=== PATIENT | male | born 1935 | race African-American/Black ===

== ENCOUNTER 2017-10-09 17:51 | Inpatient (IN) ==
[2017-10-09 18:16] LABS: Basophils % 0.3 % (0.0-0.8); Eosinophils % 0.2 % (0.00-10.9); Hematocrit 32.8 VOL% (42.0-52.0); Hemoglobin 10.7 GM/DL (14.0-18.0); Immature Granulocytes % 0.4 %; Immature Granulocytes Absolute 0.04 #; Lymphocytes # 0.8 10*3/uL (1.4-4.0); Lymphocytes % 6.9 % (21.2-54.2); Mean Corpuscular HGB Conc 32.6 GM/DL (32-36); Mean Corpuscular Hemoglobin 24 PG (27-34); Mean Corpuscular Volume 73.7 FL (87-102); Mean Platelet Volume 9.6 FL (9.6-12.0); Monocytes # 0.7 10*3/uL (0.11-0.8); Monocytes % 6.6 % (1.7-12.7); Neutrophils # 9.3 10*3/uL (1.4-7.4); Neutrophils % 85.6 % (38.7-73.9); Platelet Count 235 T/CUMM (130-400); Red Blood Count 4.45 MC/CUMM (3.8-5.5); Red Cell Distribution Width 15.5 % (9.3-17.3); White Blood Count 10.8 T/CUMM (4-12)
[2017-10-09 18:39] LABS: Lactic Acid 4.2 MMOL/L (0.4-2.0)
[2017-10-09 18:52] LABS: Alanine Aminotransferase 21 U/L (16-61); Albumin 3.4 G/DL (3.4-5.0); Alkaline Phosphatase 62 U/L (45-117); Aspartate Amino Transferase 13 U/L (0-37); Blood Urea Nitrogen 43 MG/DL (7-18); Calcium 10.6 MG/DL (8.5-10.1); Glucose 322 MG/DL (74-106); Osmolality,Calculated 303.3 MOS/KG (273-304); Potassium 4.3 MMOL/L (3.5-5.1); Sodium 141 MMOL/L (136-145); Total Protein 7.6 G/DL (6.4-8.3); Troponin I Only < 0.015 NG/ML (0.00-0.045)
[2017-10-09 19:14] LABS: Apearance,Urine CLOUDY (Clear); Bacteria,Urine Many /HPF (Few); Bilirubin,Urine Negative (Negative); Blood, Urine Negative (Negative); Glucose,Urine (UA) 150 mg/dL (Negative); Ketones,Urine Negative (Negative); Nitrite,Urine Negative (Negative); Protein,Urine 100 MG/DL; Urine Color Yellow (Yellow); Urine Specific Gravity 1.013 (1.001-1.035); Urine Urobilinogen < 2.0 EU/DL (0.2-1.0); WBC,Urine 684 /HPF (0-6)
[2017-10-09] MEDS ORDERED: VANCOMYCIN INJ 1,000 MG in SODIUM CHLORIDE 0.9% 250 ML IV STA (20:58)
[2017-10-09] MEDS ORDERED: cefTRIAXone 250 MG VIAL IV STA (20:58)
[2017-10-09] MEDS ORDERED: SODIUM CHLORIDE 0.9% 500 ML IV STA (21:01)
[2017-10-09] MEDS ORDERED: cefTRIAXone 1,000 MG VIAL ONE (21:24)
[2017-10-09] MEDS ORDERED: VANCOMYCIN 1,000 MG VIAL ONE (21:24)
[2017-10-09] MEDS ORDERED: PIPERACILLIN/TAZOBACTAM 3,375 MG in SODIUM CHLORIDE 0.9% 100 ML IV STA (21:30)
[2017-10-09] MEDS ORDERED: ALBUTEROL/IPRATROPIUM 3 ML NEB RESP TX PRN (22:11)
[2017-10-09] MEDS ORDERED: ACETAMINOPHEN 325 MG TABLET PEG PRN (22:22)
[2017-10-09] MEDS ORDERED: ONDANSETRON 4 MG/2 ML VIAL IV PRN (22:22)
[2017-10-09] MEDS ORDERED: SODIUM CHLORIDE 0.9% 1,000 ML IV SCH (22:30)
[2017-10-09] MEDS ORDERED: GLUCAGON 1 MG VIAL IM PRN (22:51)
[2017-10-09] MEDS ORDERED: PIPERACILLIN/TAZOBACTAM 3,375 MG VIAL IV ONE (22:52)
[2017-10-09] MEDS ORDERED: SODIUM CHLORIDE 0.9% 100 ML IV ONE (22:52)
[2017-10-09] MEDS ORDERED: FUROSEMIDE 40 MG/4 ML VIAL IV PRN (22:55)
[2017-10-09] MEDS ORDERED: CARVEDILOL 12.5 MG TABLET PEG SCH (23:30)
[2017-10-10] MEDS ORDERED: VANCOMYCIN INJ 1,250 MG in SODIUM CHLORIDE 0.45% 250 ML IV SCH ×2 (00:30→09:30)
[2017-10-10] MEDS: INSULIN LISPRO 100 UNIT/ML SUBCUT SCH ×4 (00:52→17:31)
[2017-10-10] MEDS ORDERED: BRIMONIDINE/TIMOLOL OPH SOLN 5 ML BOTTLE LEFT EYE SCH (01:00)
[2017-10-10] MEDS ORDERED: MOISTURIZING CREAM (EUCERIN) 113 GM JAR TOP SCH (01:00)
[2017-10-10] MEDS ORDERED: BIMATOPROST 0.01% OPH SOLN 2.5 ML BOTTLE LEFT EYE SCH (01:00)
[2017-10-10] MEDS: ALBUTEROL/IPRATROPIUM 3 ML NEB RESP TX SCH ×5 (01:15→23:36)
[2017-10-10 02:04] LABS: Basophils % 0.2 % (0.0-0.8); Eosinophils % 0.3 % (0.00-10.9); Hematocrit 33.1 VOL% (42.0-52.0); Hemoglobin 10.8 GM/DL (14.0-18.0); Immature Granulocytes % 0.5 %; Immature Granulocytes Absolute 0.05 #; Lymphocytes # 0.8 10*3/uL (1.4-4.0); Lymphocytes % 8.4 % (21.2-54.2); Mean Corpuscular HGB Conc 32.6 GM/DL (32-36); Mean Corpuscular Hemoglobin 24 PG (27-34); Mean Corpuscular Volume 73.7 FL (87-102); Mean Platelet Volume 10.9 FL (9.6-12.0); Monocytes # 0.9 10*3/uL (0.11-0.8); Monocytes % 9.6 % (1.7-12.7); Neutrophils # 7.7 10*3/uL (1.4-7.4); Platelet Count 219 T/CUMM (130-400); Red Blood Count 4.49 MC/CUMM (3.8-5.5); Red Cell Distribution Width 15.8 % (9.3-17.3); White Blood Count 9.6 T/CUMM (4-12)
[2017-10-10 02:43] LABS: Alanine Aminotransferase 21 U/L (16-61); Albumin 3.3 G/DL (3.4-5.0); Alkaline Phosphatase 67 U/L (45-117); Aspartate Amino Transferase 14 U/L (0-37); Bilirubin,Total < 0.39 MG/DL (0.2-1.0); Blood Urea Nitrogen 42 MG/DL (7-18); Calcium 9.9 MG/DL (8.5-10.1); Glucose 243 MG/DL (74-106); Magnesium 2.3 MG/DL (1.8-2.4); Osmolality,Calculated 304.8 MOS/KG (273-304); Potassium 4.3 MMOL/L (3.5-5.1); Sodium 144 MMOL/L (136-145); Total Protein 7.5 G/DL (6.4-8.3)
[2017-10-10 04:25] LABS: Anisocytosis 1+; Hypochromasia 1+; Ovalocytes Few
[2017-10-10 04:26] LABS: Platelet Estimate Normal
[2017-10-10] MEDS: PIPERACILLIN/TAZOBACTAM 3,375 MG in SODIUM CHLORIDE 0.9% 100 ML IV SCH ×4 (06:12→22:34)
[2017-10-10] MEDS ORDERED: FERROUS SULFATE 325 MG TABLET PO SCH (09:00)
[2017-10-10] MEDS ORDERED: FUROSEMIDE 40 MG TABLET PEG SCH (09:00)
[2017-10-10] MEDS ORDERED: amLODIPine 10 MG TABLET PEG SCH (09:00)
[2017-10-10] MEDS: ENOXAPARIN 30 MG/0.3 ML SYRINGE SUBCUT SCH (09:12)
[2017-10-10] MEDS: LISINOPRIL 5 MG TABLET PEG SCH (09:12)
[2017-10-10] MEDS: CARVEDILOL 12.5 MG TABLET PEG SCH ×2 (09:12→16:03)
[2017-10-10] MEDS: MOISTURIZING CREAM (EUCERIN) 113 GM JAR TOP SCH ×2 (09:20→22:06)
[2017-10-10] MEDS ORDERED: FUROSEMIDE 40 MG/4 ML VIAL IV SCH ×2 (12:30→16:00)
[2017-10-10] MEDS: FUROSEMIDE 40 MG/4 ML VIAL IV SCH (12:55)
[2017-10-10 14:24] LABS: Apearance,Urine CLEAR (Clear); Bilirubin,Urine Negative (Negative); Blood, Urine Small mg/dL (Negative); Glucose,Urine (UA) Negative (Negative); Ketones,Urine Negative (Negative); Nitrite,Urine Negative (Negative); Protein,Urine Negative; RBC,Urine 4 /HPF (0-4); Urine Color Straw (Yellow); Urine Specific Gravity 1.008 (1.001-1.035); Urine Urobilinogen < 2.0 EU/DL (0.2-1.0); WBC,Urine 10 /HPF (0-6)
[2017-10-10] MEDS: POTASSIUM IODIDE ORAL SOLN 1,000 MG/ML BOTTLE PO SCH ×2 (16:03→20:49)
[2017-10-10] MEDS: PANTOPRAZOLE 40 MG TABLET PO SCH (16:03)
[2017-10-10] MEDS: LOVASTATIN 20 MG TABLET PEG SCH (16:03)
[2017-10-10] MEDS: BRIMONIDINE/TIMOLOL OPH SOLN 5 ML BOTTLE LEFT EYE SCH (20:49)
[2017-10-10] MEDS: BIMATOPROST 0.01% OPH SOLN 2.5 ML BOTTLE LEFT EYE SCH (20:49)
[2017-10-11] MEDS: INSULIN LISPRO 100 UNIT/ML SUBCUT SCH ×4 (00:01→17:46)
[2017-10-11] MEDS: ALBUTEROL/IPRATROPIUM 3 ML NEB RESP TX SCH ×6 (03:46→23:16)
[2017-10-11 05:12] LABS: Basophils % 0.2 % (0.0-0.8); Eosinophils # 0.1 10*3/uL (0.0-0.87); Eosinophils % 1.2 % (0.00-10.9); Hematocrit 34.7 VOL% (42.0-52.0); Hemoglobin 11.4 GM/DL (14.0-18.0); Immature Granulocytes % 0.6 %; Immature Granulocytes Absolute 0.05 #; Lymphocytes # 0.8 10*3/uL (1.4-4.0); Lymphocytes % 10.1 % (21.2-54.2); Mean Corpuscular HGB Conc 32.9 GM/DL (32-36); Mean Corpuscular Hemoglobin 24 PG (27-34); Mean Platelet Volume 10.5 FL (9.6-12.0); Monocytes # 0.7 10*3/uL (0.11-0.8); Monocytes % 9.1 % (1.7-12.7); NRBC # 0.02 10*3/uL; Neutrophils # 6.4 10*3/uL (1.4-7.4); Neutrophils % 78.8 % (38.7-73.9); Platelet Count 184 T/CUMM (130-400); Red Blood Count 4.69 MC/CUMM (3.8-5.5); Red Cell Distribution Width 15.9 % (9.3-17.3); White Blood Count 8.1 T/CUMM (4-12)
[2017-10-11 05:16] LABS: Calcium 10.1 MG/DL (8.5-10.1); Magnesium 2.2 MG/DL (1.8-2.4); Osmolality,Calculated 300.6 MOS/KG (273-304); Potassium 4.1 MMOL/L (3.5-5.1)
[2017-10-11] MEDS: PIPERACILLIN/TAZOBACTAM 3,375 MG in SODIUM CHLORIDE 0.9% 100 ML IV SCH ×2 (06:10→17:44)
[2017-10-11] MEDS: CARVEDILOL 12.5 MG TABLET PEG SCH ×2 (08:00→17:45)
[2017-10-11] MEDS: ENOXAPARIN 30 MG/0.3 ML SYRINGE SUBCUT SCH (08:01)
[2017-10-11] MEDS: FUROSEMIDE 40 MG/4 ML VIAL IV SCH ×2 (08:01→17:46)
[2017-10-11] MEDS: LISINOPRIL 5 MG TABLET PEG SCH (08:01)
[2017-10-11] MEDS: MOISTURIZING CREAM (EUCERIN) 113 GM JAR TOP SCH ×2 (08:02→22:24)
[2017-10-11] MEDS: POTASSIUM IODIDE ORAL SOLN 1,000 MG/ML BOTTLE PO SCH ×3 (08:04→22:23)
[2017-10-11] MEDS: PANTOPRAZOLE 40 MG TABLET PO SCH (17:44)
[2017-10-11] MEDS: LOVASTATIN 20 MG TABLET PEG SCH (17:44)
[2017-10-11] MEDS: BRIMONIDINE/TIMOLOL OPH SOLN 5 ML BOTTLE LEFT EYE SCH (22:24)
[2017-10-11] MEDS: BIMATOPROST 0.01% OPH SOLN 2.5 ML BOTTLE LEFT EYE SCH (22:24)
[2017-10-12] MEDS: INSULIN LISPRO 100 UNIT/ML SUBCUT SCH ×4 (00:12→18:15)
[2017-10-12] MEDS: ALBUTEROL/IPRATROPIUM 3 ML NEB RESP TX SCH ×6 (04:01→23:42)
[2017-10-12 06:18] LABS: Basophils % 0.1 % (0.0-0.8); Eosinophils % 0.2 % (0.00-10.9); Hematocrit 36.4 VOL% (42.0-52.0); Hemoglobin 11.6 GM/DL (14.0-18.0); Immature Granulocytes % 0.5 %; Immature Granulocytes Absolute 0.04 #; Lymphocytes # 0.8 10*3/uL (1.4-4.0); Lymphocytes % 8.5 % (21.2-54.2); Mean Corpuscular HGB Conc 31.9 GM/DL (32-36); Mean Corpuscular Hemoglobin 24 PG (27-34); Mean Corpuscular Volume 74.9 FL (87-102); Mean Platelet Volume 10.1 FL (9.6-12.0); Monocytes # 0.7 10*3/uL (0.11-0.8); Monocytes % 8.4 % (1.7-12.7); Neutrophils # 7.3 10*3/uL (1.4-7.4); Neutrophils % 82.3 % (38.7-73.9); Platelet Count 266 T/CUMM (130-400); Red Blood Count 4.86 MC/CUMM (3.8-5.5); Red Cell Distribution Width 15.6 % (9.3-17.3); White Blood Count 8.8 T/CUMM (4-12)
[2017-10-12] MEDS: PIPERACILLIN/TAZOBACTAM 3,375 MG in SODIUM CHLORIDE 0.9% 100 ML IV SCH ×2 (06:20)
[2017-10-12 06:54] LABS: Calcium 10.2 MG/DL (8.5-10.1); Magnesium 2.3 MG/DL (1.8-2.4); Osmolality,Calculated 317.1 MOS/KG (273-304); Potassium 3.1 MMOL/L (3.5-5.1)
[2017-10-12 07:05] LABS: Phosphorous 3.8 MG/DL (2.5-4.9); Prealbumin 19.3 MG/DL (20-40)
[2017-10-12] MEDS: POTASSIUM IODIDE ORAL SOLN 1,000 MG/ML BOTTLE PO SCH ×3 (08:34→20:23)
[2017-10-12] MEDS: CARVEDILOL 12.5 MG TABLET PEG SCH ×2 (08:34→18:15)
[2017-10-12] MEDS: DOCUSATE SODIUM 100 MG/10 ML UDCUP PO SCH (08:34)
[2017-10-12] MEDS: LISINOPRIL 10 MG TABLET PEG SCH (08:34)
[2017-10-12] MEDS: ENOXAPARIN 40 MG/0.4 ML SYRINGE SUBCUT SCH (08:35)
[2017-10-12] MEDS: FUROSEMIDE 40 MG/4 ML VIAL IV SCH ×2 (08:35→15:27)
[2017-10-12] MEDS: MOISTURIZING CREAM (EUCERIN) 113 GM JAR TOP SCH ×2 (08:42→20:23)
[2017-10-12] MEDS ORDERED: POTASSIUM CHLORIDE 20 MEQ/15 ML UDCUP PEG ONE (09:00)
[2017-10-12] MEDS: INSULIN GLARGINE 100 UNIT/ML SUBCUT SCH (09:04)
[2017-10-12] MEDS: PANTOPRAZOLE 40 MG TABLET PO SCH (15:28)
[2017-10-12] MEDS: LOVASTATIN 20 MG TABLET PEG SCH (18:14)
[2017-10-12] MEDS: BRIMONIDINE/TIMOLOL OPH SOLN 5 ML BOTTLE LEFT EYE SCH (20:21)
[2017-10-12] MEDS: BIMATOPROST 0.01% OPH SOLN 2.5 ML BOTTLE LEFT EYE SCH (20:21)
[2017-10-12] MEDS: cefTRIAXone 1,000 MG in SYRINGE 1 EACH IV SCH (22:52)
[2017-10-13] MEDS: INSULIN LISPRO 100 UNIT/ML SUBCUT SCH ×5 (01:19→20:17)
[2017-10-13] MEDS: ALBUTEROL/IPRATROPIUM 3 ML NEB RESP TX SCH ×6 (02:56→23:41)
[2017-10-13 06:23] LABS: Basophils % 0.2 % (0.0-0.8); Eosinophils # 0.1 10*3/uL (0.0-0.87); Eosinophils % 0.8 % (0.00-10.9); Hematocrit 37.1 VOL% (42.0-52.0); Hemoglobin 11.4 GM/DL (14.0-18.0); Immature Granulocytes % 0.9 %; Immature Granulocytes Absolute 0.09 #; Lymphocytes # 0.8 10*3/uL (1.4-4.0); Lymphocytes % 8.5 % (21.2-54.2); Mean Corpuscular HGB Conc 30.7 GM/DL (32-36); Mean Corpuscular Hemoglobin 24 PG (27-34); Mean Corpuscular Volume 76.7 FL (87-102); Mean Platelet Volume 10.6 FL (9.6-12.0); Monocytes % 10.3 % (1.7-12.7); Neutrophils # 7.9 10*3/uL (1.4-7.4); Neutrophils % 79.3 % (38.7-73.9); Platelet Count 247 T/CUMM (130-400); Red Blood Count 4.84 MC/CUMM (3.8-5.5); Red Cell Distribution Width 15.8 % (9.3-17.3); White Blood Count 9.9 T/CUMM (4-12)
[2017-10-13 06:50] LABS: Calcium 9.5 MG/DL (8.5-10.1); Magnesium 2.5 MG/DL (1.8-2.4); Osmolality,Calculated 328.4 MOS/KG (273-304); Potassium 3.6 MMOL/L (3.5-5.1)
[2017-10-13] MEDS: ENOXAPARIN 40 MG/0.4 ML SYRINGE SUBCUT SCH (08:53)
[2017-10-13] MEDS: INSULIN GLARGINE 100 UNIT/ML SUBCUT SCH (08:53)
[2017-10-13] MEDS: FUROSEMIDE 40 MG/4 ML VIAL IV SCH (08:54)
[2017-10-13] MEDS: CARVEDILOL 12.5 MG TABLET PEG SCH ×2 (08:55→16:22)
[2017-10-13] MEDS: LISINOPRIL 10 MG TABLET PEG SCH (08:55)
[2017-10-13] MEDS: DOCUSATE SODIUM 100 MG/10 ML UDCUP PO SCH (08:56)
[2017-10-13] MEDS: MOISTURIZING CREAM (EUCERIN) 113 GM JAR TOP SCH ×2 (08:57→20:19)
[2017-10-13] MEDS: POTASSIUM IODIDE ORAL SOLN 1,000 MG/ML BOTTLE PO SCH ×3 (08:57→20:18)
[2017-10-13] MEDS ORDERED: INSULIN GLARGINE 100 UNIT/ML SUBCUT ONE (08:59)
[2017-10-13] MEDS ORDERED: FUROSEMIDE 40 MG TABLET PO SCH (16:00)
[2017-10-13] MEDS ORDERED: INSULIN LISPRO 100 UNIT/ML SUBCUT SCH (16:12)
[2017-10-13] MEDS: LOVASTATIN 20 MG TABLET PEG SCH (16:22)
[2017-10-13] MEDS: PANTOPRAZOLE 40 MG TABLET PO SCH (16:22)
[2017-10-13] MEDS: BRIMONIDINE/TIMOLOL OPH SOLN 5 ML BOTTLE LEFT EYE SCH (20:19)
[2017-10-13] MEDS: BIMATOPROST 0.01% OPH SOLN 2.5 ML BOTTLE LEFT EYE SCH (20:19)
[2017-10-13] MEDS: cefTRIAXone 1,000 MG in SYRINGE 1 EACH IV SCH (20:53)
[2017-10-14] MEDS: INSULIN LISPRO 100 UNIT/ML SUBCUT SCH ×6 (01:01→20:38)
[2017-10-14] MEDS: ALBUTEROL/IPRATROPIUM 3 ML NEB RESP TX SCH ×6 (02:34→23:40)
[2017-10-14 06:37] LABS: Calcium 9.5 MG/DL (8.5-10.1); Osmolality,Calculated 330.2 MOS/KG (273-304); Potassium 3.8 MMOL/L (3.5-5.1)
[2017-10-14] MEDS: INSULIN GLARGINE 100 UNIT/ML SUBCUT SCH (11:03)
[2017-10-14] MEDS: ENOXAPARIN 40 MG/0.4 ML SYRINGE SUBCUT SCH (11:04)
[2017-10-14] MEDS: DOCUSATE SODIUM 100 MG/10 ML UDCUP PO SCH (11:05)
[2017-10-14] MEDS: CARVEDILOL 12.5 MG TABLET PEG SCH ×2 (11:05→17:27)
[2017-10-14] MEDS: LISINOPRIL 10 MG TABLET PEG SCH (11:05)
[2017-10-14] MEDS: MOISTURIZING CREAM (EUCERIN) 113 GM JAR TOP SCH ×2 (13:30→20:38)
[2017-10-14] MEDS: DEXTROSE 5% 1,000 ML IV SCH (13:39)
[2017-10-14 15:55] LABS: Calcium 9.3 MG/DL (8.5-10.1); Potassium 3.8 MMOL/L (3.5-5.1)
[2017-10-14] MEDS: PANTOPRAZOLE 40 MG TABLET PO SCH (17:27)
[2017-10-14] MEDS: LOVASTATIN 20 MG TABLET PEG SCH (17:27)
[2017-10-14] MEDS: BIMATOPROST 0.01% OPH SOLN 2.5 ML BOTTLE LEFT EYE SCH (20:38)
[2017-10-14] MEDS: BRIMONIDINE/TIMOLOL OPH SOLN 5 ML BOTTLE LEFT EYE SCH (20:38)
[2017-10-14] MEDS ORDERED: SODIUM CHLORIDE 0.45% 1,000 ML IV SCH (22:30)
[2017-10-14] MEDS: cefTRIAXone 1,000 MG in SYRINGE 1 EACH IV SCH (22:37)
[2017-10-15] MEDS: DEXTROSE 5% 1,000 ML IV SCH ×2 (00:30→10:25)
[2017-10-15] MEDS: ALBUTEROL/IPRATROPIUM 3 ML NEB RESP TX SCH ×5 (03:15→19:14)
[2017-10-15] MEDS: INSULIN LISPRO 100 UNIT/ML SUBCUT SCH ×6 (05:33→20:30)
[2017-10-15 06:27] LABS: Calcium 9.3 MG/DL (8.5-10.1); Magnesium 2.8 MG/DL (1.8-2.4); Osmolality,Calculated 318.6 MOS/KG (273-304); Phosphorous 3.4 MG/DL (2.5-4.9); Potassium 3.5 MMOL/L (3.5-5.1); Prealbumin 16.5 MG/DL (20-40)
[2017-10-15] MEDS: ENOXAPARIN 40 MG/0.4 ML SYRINGE SUBCUT SCH (08:06)
[2017-10-15] MEDS: CARVEDILOL 12.5 MG TABLET PEG SCH ×2 (08:06→15:59)
[2017-10-15] MEDS: DOCUSATE SODIUM 100 MG/10 ML UDCUP PO SCH (08:06)
[2017-10-15] MEDS: MOISTURIZING CREAM (EUCERIN) 113 GM JAR TOP SCH ×2 (08:06→20:31)
[2017-10-15] MEDS: INSULIN GLARGINE 100 UNIT/ML SUBCUT SCH (08:06)
[2017-10-15] MEDS ORDERED: INSULIN GLARGINE 100 UNIT/ML SUBCUT ONE (11:00)
[2017-10-15] MEDS ORDERED: LACTULOSE 20 GM/30 ML UDCUP PO PRN (11:32)
[2017-10-15] MEDS: LANSOPRAZOLE ODT 30 MG TABLET PEG SCH (15:58)
[2017-10-15] MEDS: LOVASTATIN 20 MG TABLET PEG SCH (16:00)
[2017-10-15] MEDS: SODIUM CHLORIDE 0.45% 1,000 ML IV SCH (17:15)
[2017-10-15] MEDS: BRIMONIDINE/TIMOLOL OPH SOLN 5 ML BOTTLE LEFT EYE SCH (20:31)
[2017-10-15] MEDS: BIMATOPROST 0.01% OPH SOLN 2.5 ML BOTTLE LEFT EYE SCH (20:31)
[2017-10-15] MEDS: cefTRIAXone 1,000 MG in SYRINGE 1 EACH IV SCH (22:19)
[2017-10-16] MEDS: INSULIN LISPRO 100 UNIT/ML SUBCUT SCH ×6 (00:30→20:47)
[2017-10-16] MEDS: ALBUTEROL/IPRATROPIUM 3 ML NEB RESP TX SCH ×7 (01:08→23:27)
[2017-10-16 04:33] LABS: Basophils % 0.2 % (0.0-0.8); Eosinophils # 0.3 10*3/uL (0.0-0.87); Eosinophils % 1.8 % (0.00-10.9); Hematocrit 31.8 VOL% (42.0-52.0); Hemoglobin 9.9 GM/DL (14.0-18.0); Immature Granulocytes % 1.4 %; Immature Granulocytes Absolute 0.19 #; Lymphocytes # 1.6 10*3/uL (1.4-4.0); Mean Corpuscular HGB Conc 31.1 GM/DL (32-36); Mean Corpuscular Hemoglobin 24 PG (27-34); Mean Corpuscular Volume 75.7 FL (87-102); Mean Platelet Volume 11.2 FL (9.6-12.0); Monocytes # 0.9 10*3/uL (0.11-0.8); Monocytes % 6.5 % (1.7-12.7); NRBC # 0.02 10*3/uL; Neutrophils # 11.1 10*3/uL (1.4-7.4); Neutrophils % 79.1 % (38.7-73.9); Platelet Count 205 T/CUMM (130-400); Red Cell Distribution Width 15.5 % (9.3-17.3)
[2017-10-16] MEDS: SODIUM CHLORIDE 0.45% 1,000 ML IV SCH ×2 (05:50→18:33)
[2017-10-16 06:36] LABS: Band Neutrophils 15 % (0-10); Eosinophils 5 % (0-10); Lymphocytes 7 % (20-55); Segmented Neutrophils 71 % (50-85); Total Cells Counted 100
[2017-10-16 06:37] LABS: Hypochromasia 1+; Microcytosis 2+; Platelet Estimate Adequate
[2017-10-16] MEDS: ENOXAPARIN 40 MG/0.4 ML SYRINGE SUBCUT SCH (08:49)
[2017-10-16] MEDS: DOCUSATE SODIUM 100 MG/10 ML UDCUP PO SCH (08:49)
[2017-10-16] MEDS: MOISTURIZING CREAM (EUCERIN) 113 GM JAR TOP SCH ×2 (08:49→20:48)
[2017-10-16] MEDS: CARVEDILOL 12.5 MG TABLET PEG SCH ×2 (08:51→16:20)
[2017-10-16] MEDS ORDERED: INSULIN GLARGINE 100 UNIT/ML SUBCUT SCH (09:00)
[2017-10-16 11:30] LABS: Amorphous Crystals,Urine Moderate /HPF (Few); Apearance,Urine CLOUDY (Clear); Bilirubin,Urine Negative (Negative); Blood, Urine Negative (Negative); Glucose,Urine (UA) 50 mg/dL (Negative); Ketones,Urine Negative (Negative); Nitrite,Urine Negative (Negative); Protein,Urine 30 MG/DL; Squamous Epithelial Cell,Urine Occasional /HPF (0-10); Urine Color Amber (Yellow); Urine Specific Gravity 1.015 (1.001-1.035); Urine Urobilinogen < 2.0 EU/DL (0.2-1.0)
[2017-10-16] MEDS: LANSOPRAZOLE ODT 30 MG TABLET PEG SCH (16:20)
[2017-10-16] MEDS: LOVASTATIN 20 MG TABLET PEG SCH (16:20)
[2017-10-16] MEDS ORDERED: SODIUM CHLORIDE 0.9% 500 ML IV ONE (16:20)
[2017-10-16] MEDS ORDERED: BISACODYL 10 MG SUPP RECTAL ONE (16:22)
[2017-10-16] MEDS: PIPERACILLIN/TAZOBACTAM 3,375 MG in SODIUM CHLORIDE 0.9% 100 ML IV SCH (18:09)
[2017-10-16] MEDS: BIMATOPROST 0.01% OPH SOLN 2.5 ML BOTTLE LEFT EYE SCH (20:48)
[2017-10-16] MEDS: BRIMONIDINE/TIMOLOL OPH SOLN 5 ML BOTTLE LEFT EYE SCH (20:48)
[2017-10-17] MEDS: INSULIN LISPRO 100 UNIT/ML SUBCUT SCH ×6 (00:19→22:27)
[2017-10-17] MEDS: PIPERACILLIN/TAZOBACTAM 3,375 MG in SODIUM CHLORIDE 0.9% 100 ML IV SCH ×3 (01:56→16:44)
[2017-10-17 03:25] LABS: Basophils % 0.2 % (0.0-0.8); Eosinophils # 0.2 10*3/uL (0.0-0.87); Eosinophils % 1.9 % (0.00-10.9); Hematocrit 28.2 VOL% (42.0-52.0); Hemoglobin 9.1 GM/DL (14.0-18.0); Immature Granulocytes % 1.1 %; Immature Granulocytes Absolute 0.14 #; Lymphocytes # 1.2 10*3/uL (1.4-4.0); Lymphocytes % 9.1 % (21.2-54.2); Mean Corpuscular HGB Conc 32.3 GM/DL (32-36); Mean Corpuscular Hemoglobin 24 PG (27-34); Monocytes # 0.6 10*3/uL (0.11-0.8); Monocytes % 4.8 % (1.7-12.7); Neutrophils # 10.5 10*3/uL (1.4-7.4); Neutrophils % 82.9 % (38.7-73.9); Platelet Count 217 T/CUMM (130-400); Red Blood Count 3.76 MC/CUMM (3.8-5.5); Red Cell Distribution Width 15.3 % (9.3-17.3); White Blood Count 12.6 T/CUMM (4-12)
[2017-10-17] MEDS: ALBUTEROL/IPRATROPIUM 3 ML NEB RESP TX SCH ×5 (03:53→19:38)
[2017-10-17] MEDS: DEXTROSE 50% 25 GM/50 ML VIAL IV PRN (05:09)
[2017-10-17 08:15] LABS: Hypochromasia 1+; Lymphocytes 11 % (20-55); Ovalocytes Slight; Segmented Neutrophils 85 % (50-85); Total Cells Counted 100
[2017-10-17 08:16] LABS: Microcytosis 1+; Platelet Estimate Normal
[2017-10-17 10:09] LABS: Calcium 8.4 MG/DL (8.5-10.1); Osmolality,Calculated 307.1 MOS/KG (273-304); Potassium 3.3 MMOL/L (3.5-5.1)
[2017-10-17] MEDS: POLYETHYLENE GLYCOL POWDER 17 GM PACK PO SCH (10:39)
[2017-10-17] MEDS: CARVEDILOL 12.5 MG TABLET PEG SCH ×2 (10:39→16:43)
[2017-10-17] MEDS: DOCUSATE SODIUM 100 MG/10 ML UDCUP PO SCH (10:39)
[2017-10-17] MEDS: MOISTURIZING CREAM (EUCERIN) 113 GM JAR TOP SCH ×2 (10:40→21:33)
[2017-10-17] MEDS: ENOXAPARIN 40 MG/0.4 ML SYRINGE SUBCUT SCH (10:40)
[2017-10-17] MEDS: INSULIN GLARGINE 100 UNIT/ML SUBCUT SCH (10:40)
[2017-10-17] MEDS: POTASSIUM CHLORIDE 20 MEQ/15 ML UDCUP PER TUBE SCH ×2 (16:43→21:33)
[2017-10-17] MEDS: LANSOPRAZOLE ODT 30 MG TABLET PEG SCH (16:43)
[2017-10-17] MEDS: LOVASTATIN 20 MG TABLET PEG SCH (16:43)
[2017-10-17] MEDS: BRIMONIDINE/TIMOLOL OPH SOLN 5 ML BOTTLE LEFT EYE SCH (21:32)
[2017-10-17] MEDS: BIMATOPROST 0.01% OPH SOLN 2.5 ML BOTTLE LEFT EYE SCH (21:32)
[2017-10-17] MEDS: SODIUM CHLORIDE 0.45% 1,000 ML IV SCH ×2 (23:30→23:49)
[2017-10-18] MEDS: ALBUTEROL/IPRATROPIUM 3 ML NEB RESP TX SCH ×7 (00:30→23:15)
[2017-10-18] MEDS: INSULIN LISPRO 100 UNIT/ML SUBCUT SCH ×6 (00:52→20:46)
[2017-10-18] MEDS: POTASSIUM CHLORIDE 20 MEQ/15 ML UDCUP PER TUBE SCH (01:08)
[2017-10-18] MEDS: PIPERACILLIN/TAZOBACTAM 3,375 MG in SODIUM CHLORIDE 0.9% 100 ML IV SCH ×3 (01:09→16:23)
[2017-10-18] MEDS: MOISTURIZING CREAM (EUCERIN) 113 GM JAR TOP SCH ×2 (09:44→20:53)
[2017-10-18] MEDS: ENOXAPARIN 40 MG/0.4 ML SYRINGE SUBCUT SCH (09:44)
[2017-10-18] MEDS: INSULIN GLARGINE 100 UNIT/ML SUBCUT SCH (09:44)
[2017-10-18] MEDS: CARVEDILOL 12.5 MG TABLET PEG SCH ×2 (09:44→16:26)
[2017-10-18] MEDS: DOCUSATE SODIUM 100 MG/10 ML UDCUP PO SCH (09:44)
[2017-10-18] MEDS: POLYETHYLENE GLYCOL POWDER 17 GM PACK PO SCH (09:44)
[2017-10-18 09:51] LABS: Calcium 8.6 MG/DL (8.5-10.1)
[2017-10-18] MEDS ORDERED: FUROSEMIDE 40 MG/4 ML VIAL ONE (13:39)
[2017-10-18] MEDS ORDERED: FUROSEMIDE 40 MG/4 ML VIAL IV ONE (13:47)
[2017-10-18] MEDS ORDERED: SODIUM CHLORIDE 0.9% 1,000 ML IV SCH (14:00)
[2017-10-18] MEDS ORDERED: SODIUM CHLORIDE 0.9% 500 ML IV ONE (14:40)
[2017-10-18 15:45] LABS: Apearance,Urine CLOUDY (Clear); Bilirubin,Urine Negative (Negative); Blood, Urine Negative (Negative); Glucose,Urine (UA) Negative (Negative); Ketones,Urine Negative (Negative); Nitrite,Urine Negative (Negative); Protein,Urine Negative; RBC,Urine 2 /HPF (0-4); Urine Color Yellow (Yellow); Urine Specific Gravity 1.015 (1.001-1.035); Urine Urobilinogen < 2.0 EU/DL (0.2-1.0); WBC,Urine 3 /HPF (0-6)
[2017-10-18] MEDS: LANSOPRAZOLE ODT 30 MG TABLET PEG SCH (16:26)
[2017-10-18] MEDS: LOVASTATIN 20 MG TABLET PEG SCH (16:27)
[2017-10-18] MEDS: DEXTROSE 50% 25 GM/50 ML VIAL IV PRN ×2 (17:28→20:51)
[2017-10-18] MEDS: SODIUM CHLORIDE IV SCH (20:53)
[2017-10-18] MEDS: [UNRECOGNIZED DRUG - OTHER] IV SCH (20:53)
[2017-10-18] MEDS: POTASSIUM CHLORIDE IV SCH (20:53)
[2017-10-18] MEDS: BIMATOPROST 0.01% OPH SOLN 2.5 ML BOTTLE LEFT EYE SCH (20:53)
[2017-10-18] MEDS: BRIMONIDINE/TIMOLOL OPH SOLN 5 ML BOTTLE LEFT EYE SCH (20:53)
[2017-10-19] MEDS: DEXTROSE 50% 25 GM/50 ML VIAL IV PRN ×3 (00:35→20:57)
[2017-10-19] MEDS: INSULIN LISPRO 100 UNIT/ML SUBCUT SCH ×6 (01:18→22:21)
[2017-10-19] MEDS: PIPERACILLIN/TAZOBACTAM 3,375 MG in SODIUM CHLORIDE 0.9% 100 ML IV SCH ×3 (01:31→16:39)
[2017-10-19] MEDS: ALBUTEROL/IPRATROPIUM 3 ML NEB RESP TX SCH ×5 (03:38→20:37)
[2017-10-19 06:47] LABS: Basophils % 0.1 % (0.0-0.8); Eosinophils # 0.1 10*3/uL (0.0-0.87); Eosinophils % 0.4 % (0.00-10.9); Hematocrit 30.4 VOL% (42.0-52.0); Hemoglobin 9.8 GM/DL (14.0-18.0); Immature Granulocytes % 0.7 %; Immature Granulocytes Absolute 0.13 #; Lymphocytes # 0.7 10*3/uL (1.4-4.0); Lymphocytes % 3.7 % (21.2-54.2); Mean Corpuscular HGB Conc 32.2 GM/DL (32-36); Mean Corpuscular Hemoglobin 24 PG (27-34); Mean Corpuscular Volume 73.8 FL (87-102); Mean Platelet Volume 10.6 FL (9.6-12.0); Monocytes # 0.8 10*3/uL (0.11-0.8); Monocytes % 4.5 % (1.7-12.7); Neutrophils % 90.6 % (38.7-73.9); Platelet Count 297 T/CUMM (130-400); Red Blood Count 4.12 MC/CUMM (3.8-5.5); Red Cell Distribution Width 15.2 % (9.3-17.3); White Blood Count 18.8 T/CUMM (4-12)
[2017-10-19 07:00] LABS: Calcium 8.8 MG/DL (8.5-10.1); Osmolality,Calculated 309.7 MOS/KG (273-304); Potassium 3.5 MMOL/L (3.5-5.1)
[2017-10-19 07:11] LABS: Band Neutrophils 1 % (0-10); Hypochromasia 1+; Lymphocytes 1 % (20-55); Microcytosis 1+; Segmented Neutrophils 95 % (50-85); Total Cells Counted 100
[2017-10-19 07:12] LABS: Ovalocytes Slight; Platelet Estimate Normal; Tear Drop Cells Slight
[2017-10-19 07:18] LABS: Magnesium 3.4 MG/DL (1.8-2.4); Prealbumin 13.7 MG/DL (20-40)
[2017-10-19] MEDS: DOCUSATE SODIUM 100 MG/10 ML UDCUP PO SCH (10:27)
[2017-10-19] MEDS: CARVEDILOL 12.5 MG TABLET PEG SCH ×2 (10:27→16:37)
[2017-10-19] MEDS: MOISTURIZING CREAM (EUCERIN) 113 GM JAR TOP SCH ×2 (10:27→20:30)
[2017-10-19] MEDS: INSULIN GLARGINE 100 UNIT/ML SUBCUT SCH (10:28)
[2017-10-19] MEDS: POLYETHYLENE GLYCOL POWDER 17 GM PACK PO SCH (10:28)
[2017-10-19] MEDS: ENOXAPARIN 30 MG/0.3 ML SYRINGE SUBCUT SCH (10:31)
[2017-10-19] MEDS: LANSOPRAZOLE ODT 30 MG TABLET PEG SCH (16:37)
[2017-10-19] MEDS: LOVASTATIN 20 MG TABLET PEG SCH (16:37)
[2017-10-19] MEDS: BIMATOPROST 0.01% OPH SOLN 2.5 ML BOTTLE LEFT EYE SCH (20:30)
[2017-10-19] MEDS: BRIMONIDINE/TIMOLOL OPH SOLN 5 ML BOTTLE LEFT EYE SCH (20:30)
[2017-10-19] MEDS: DEXTROSE 5% NACL 0.45% 1,000 ML IV SCH (22:21)
[2017-10-20] MEDS: INSULIN LISPRO 100 UNIT/ML SUBCUT SCH ×6 (00:25→21:22)
[2017-10-20] MEDS: ALBUTEROL/IPRATROPIUM 3 ML NEB RESP TX SCH ×7 (00:41→22:55)
[2017-10-20] MEDS: PIPERACILLIN/TAZOBACTAM 3,375 MG in SODIUM CHLORIDE 0.9% 100 ML IV SCH ×3 (01:12→16:36)
[2017-10-20 07:03] LABS: Basophils % 0.2 % (0.0-0.8); Eosinophils # 0.1 10*3/uL (0.0-0.87); Eosinophils % 0.8 % (0.00-10.9); Hematocrit 28.9 VOL% (42.0-52.0); Hemoglobin 9.3 GM/DL (14.0-18.0); Immature Granulocytes % 0.8 %; Immature Granulocytes Absolute 0.11 #; Lymphocytes # 0.6 10*3/uL (1.4-4.0); Lymphocytes % 4.8 % (21.2-54.2); Mean Corpuscular HGB Conc 32.2 GM/DL (32-36); Mean Corpuscular Hemoglobin 24 PG (27-34); Mean Corpuscular Volume 73.4 FL (87-102); Mean Platelet Volume 11.3 FL (9.6-12.0); Monocytes # 0.9 10*3/uL (0.11-0.8); Monocytes % 6.3 % (1.7-12.7); NRBC # 0.02 10*3/uL; Neutrophils # 11.7 10*3/uL (1.4-7.4); Neutrophils % 87.1 % (38.7-73.9); Platelet Count 282 T/CUMM (130-400); Red Blood Count 3.94 MC/CUMM (3.8-5.5); Red Cell Distribution Width 15.2 % (9.3-17.3); White Blood Count 13.5 T/CUMM (4-12)
[2017-10-20 07:24] LABS: Calcium 8.5 MG/DL (8.5-10.1); Potassium 5.7 MMOL/L (3.5-5.1)
[2017-10-20] MEDS: SODIUM CHLORIDE IV SCH (07:29)
[2017-10-20] MEDS: [UNRECOGNIZED DRUG - OTHER] IV SCH (07:29)
[2017-10-20] MEDS: POTASSIUM CHLORIDE IV SCH (07:29)
[2017-10-20 07:30] LABS: Elliptocytes Few; Eosinophils 1 % (0-10); Giant Platelets Few; Hypochromasia 1+; Lymphocytes 4 % (20-55); Microcytosis Slight; Platelet Estimate Adequate; Segmented Neutrophils 91 % (50-85); Total Cells Counted 100
[2017-10-20] MEDS: DOCUSATE SODIUM 100 MG/10 ML UDCUP PO SCH (08:28)
[2017-10-20] MEDS: ENOXAPARIN 30 MG/0.3 ML SYRINGE SUBCUT SCH (08:28)
[2017-10-20] MEDS: CARVEDILOL 12.5 MG TABLET PEG SCH ×2 (08:28→16:36)
[2017-10-20] MEDS: POLYETHYLENE GLYCOL POWDER 17 GM PACK PO SCH (08:28)
[2017-10-20] MEDS: MOISTURIZING CREAM (EUCERIN) 113 GM JAR TOP SCH ×2 (08:29→21:22)
[2017-10-20] MEDS: LANSOPRAZOLE ODT 30 MG TABLET PEG SCH (16:35)
[2017-10-20] MEDS: LOVASTATIN 20 MG TABLET PEG SCH (16:35)
[2017-10-20] MEDS: BIMATOPROST 0.01% OPH SOLN 2.5 ML BOTTLE LEFT EYE SCH (21:22)
[2017-10-20] MEDS: BRIMONIDINE/TIMOLOL OPH SOLN 5 ML BOTTLE LEFT EYE SCH (21:22)
[2017-10-20] MEDS: INSULIN GLARGINE 100 UNIT/ML SUBCUT SCH (22:59)
[2017-10-21] MEDS: INSULIN LISPRO 100 UNIT/ML SUBCUT SCH ×6 (01:07→20:42)
[2017-10-21] MEDS: PIPERACILLIN/TAZOBACTAM 3,375 MG in SODIUM CHLORIDE 0.9% 100 ML IV SCH ×3 (01:08→17:16)
[2017-10-21] MEDS: ALBUTEROL/IPRATROPIUM 3 ML NEB RESP TX SCH ×6 (03:35→23:30)
[2017-10-21] MEDS ORDERED: hydrALAZINE 20 MG/1 ML VIAL IV PRN (04:12)
[2017-10-21 08:05] LABS: Basophils % 0.3 % (0.0-0.8); Eosinophils # 0.1 10*3/uL (0.0-0.87); Hematocrit 29.3 VOL% (42.0-52.0); Hemoglobin 9.4 GM/DL (14.0-18.0); Immature Granulocytes % 0.7 %; Immature Granulocytes Absolute 0.07 #; Lymphocytes # 0.7 10*3/uL (1.4-4.0); Lymphocytes % 6.9 % (21.2-54.2); Mean Corpuscular HGB Conc 32.1 GM/DL (32-36); Mean Corpuscular Hemoglobin 24 PG (27-34); Mean Corpuscular Volume 74.7 FL (87-102); Mean Platelet Volume 9.8 FL (9.6-12.0); Monocytes # 0.6 10*3/uL (0.11-0.8); Monocytes % 6.6 % (1.7-12.7); Neutrophils # 7.9 10*3/uL (1.4-7.4); Neutrophils % 84.5 % (38.7-73.9); Platelet Count 354 T/CUMM (130-400); Red Blood Count 3.92 MC/CUMM (3.8-5.5); Red Cell Distribution Width 15.5 % (9.3-17.3); White Blood Count 9.4 T/CUMM (4-12)
[2017-10-21 08:31] LABS: Calcium 8.5 MG/DL (8.5-10.1); Magnesium 3.1 MG/DL (1.8-2.4); Osmolality,Calculated 320.6 MOS/KG (273-304); Potassium 2.7 MMOL/L (3.5-5.1)
[2017-10-21] MEDS: DOCUSATE SODIUM 100 MG/10 ML UDCUP PO SCH (10:16)
[2017-10-21] MEDS: ENOXAPARIN 30 MG/0.3 ML SYRINGE SUBCUT SCH (10:16)
[2017-10-21] MEDS: CARVEDILOL 12.5 MG TABLET PEG SCH ×2 (10:16→17:17)
[2017-10-21] MEDS: POLYETHYLENE GLYCOL POWDER 17 GM PACK PO SCH (10:16)
[2017-10-21] MEDS: POTASSIUM CHLORIDE 20 MEQ/15 ML UDCUP PO SCH ×2 (10:16→20:42)
[2017-10-21] MEDS: MOISTURIZING CREAM (EUCERIN) 113 GM JAR TOP SCH ×2 (10:17→20:42)
[2017-10-21] MEDS: LANSOPRAZOLE ODT 30 MG TABLET PEG SCH (17:17)
[2017-10-21] MEDS: LOVASTATIN 20 MG TABLET PEG SCH (17:18)
[2017-10-21] MEDS: BIMATOPROST 0.01% OPH SOLN 2.5 ML BOTTLE LEFT EYE SCH (20:42)
[2017-10-21] MEDS: BRIMONIDINE/TIMOLOL OPH SOLN 5 ML BOTTLE LEFT EYE SCH (20:42)
[2017-10-22] MEDS: PIPERACILLIN/TAZOBACTAM 3,375 MG in SODIUM CHLORIDE 0.9% 100 ML IV SCH ×2 (02:12→10:22)
[2017-10-22] MEDS: INSULIN LISPRO 100 UNIT/ML SUBCUT SCH ×6 (02:12→20:40)
[2017-10-22] MEDS: ALBUTEROL/IPRATROPIUM 3 ML NEB RESP TX SCH ×5 (02:56→20:19)
[2017-10-22 07:24] LABS: Basophils % 0.4 % (0.0-0.8); Eosinophils # 0.2 10*3/uL (0.0-0.87); Eosinophils % 2.1 % (0.00-10.9); Hematocrit 29.8 VOL% (42.0-52.0); Hemoglobin 9.3 GM/DL (14.0-18.0); Immature Granulocytes % 1.1 %; Immature Granulocytes Absolute 0.09 #; Lymphocytes % 12.1 % (21.2-54.2); Mean Corpuscular HGB Conc 31.2 GM/DL (32-36); Mean Corpuscular Hemoglobin 24 PG (27-34); Mean Platelet Volume 9.6 FL (9.6-12.0); Monocytes # 0.7 10*3/uL (0.11-0.8); Monocytes % 8.5 % (1.7-12.7); Neutrophils # 6.5 10*3/uL (1.4-7.4); Neutrophils % 75.8 % (38.7-73.9); Platelet Count 390 T/CUMM (130-400); Red Blood Count 3.92 MC/CUMM (3.8-5.5); Red Cell Distribution Width 15.9 % (9.3-17.3); White Blood Count 8.5 T/CUMM (4-12)
[2017-10-22 07:53] LABS: Calcium 8.7 MG/DL (8.5-10.1); Elliptocytes Few; Giant Platelets Few; Hypochromasia 1+; Lymphocytes 10 % (20-55); Magnesium 2.9 MG/DL (1.8-2.4); Osmolality,Calculated 316.9 MOS/KG (273-304); Platelet Estimate Adequate; Potassium 3.3 MMOL/L (3.5-5.1); Segmented Neutrophils 81 % (50-85); Total Cells Counted 100
[2017-10-22 07:54] LABS: Microcytosis Slight
[2017-10-22] MEDS: DOCUSATE SODIUM 100 MG/10 ML UDCUP PO SCH (09:57)
[2017-10-22] MEDS: POLYETHYLENE GLYCOL POWDER 17 GM PACK PO SCH (09:57)
[2017-10-22] MEDS: POTASSIUM CHLORIDE 20 MEQ/15 ML UDCUP PO SCH ×2 (09:57→20:40)
[2017-10-22] MEDS: CARVEDILOL 12.5 MG TABLET PEG SCH ×2 (09:58→17:56)
[2017-10-22] MEDS: ENOXAPARIN 40 MG/0.4 ML SYRINGE SUBCUT SCH (09:59)
[2017-10-22] MEDS: MOISTURIZING CREAM (EUCERIN) 113 GM JAR TOP SCH ×2 (10:23→20:40)
[2017-10-22 16:29] LABS: Calcium 8.6 MG/DL (8.5-10.1); Osmolality,Calculated 321.7 MOS/KG (273-304); Potassium 3.6 MMOL/L (3.5-5.1)
[2017-10-22] MEDS: LOVASTATIN 20 MG TABLET PEG SCH (17:56)
[2017-10-22] MEDS: LANSOPRAZOLE ODT 30 MG TABLET PEG SCH (17:56)
[2017-10-22] MEDS: BRIMONIDINE/TIMOLOL OPH SOLN 5 ML BOTTLE LEFT EYE SCH (20:40)
[2017-10-22] MEDS: BIMATOPROST 0.01% OPH SOLN 2.5 ML BOTTLE LEFT EYE SCH (20:40)
[2017-10-23] MEDS: INSULIN LISPRO 100 UNIT/ML SUBCUT SCH ×4 (00:54→13:36)
[2017-10-23] MEDS: ALBUTEROL/IPRATROPIUM 3 ML NEB RESP TX SCH ×4 (01:07→12:13)
[2017-10-23 09:03] LABS: Calcium 8.6 MG/DL (8.5-10.1); Potassium 3.8 MMOL/L (3.5-5.1)
[2017-10-23] MEDS: ENOXAPARIN 40 MG/0.4 ML SYRINGE SUBCUT SCH (10:27)
[2017-10-23] MEDS: POTASSIUM CHLORIDE 20 MEQ/15 ML UDCUP PO SCH (10:28)
[2017-10-23] MEDS: DOCUSATE SODIUM 100 MG/10 ML UDCUP PO SCH (10:28)
[2017-10-23] MEDS: POLYETHYLENE GLYCOL POWDER 17 GM PACK PO SCH (10:28)
[2017-10-23] MEDS: CARVEDILOL 12.5 MG TABLET PEG SCH (10:29)
[2017-10-23] MEDS: MOISTURIZING CREAM (EUCERIN) 113 GM JAR TOP SCH (10:42)
[2017-10-23 13:30] VITALS: BP 151/76
[2017-10-23] MEDS: DEXTROSE 5% NACL 0.45% 1,000 ML IV SCH (15:34)
== END 2017-10-23 14:58 | DRG 202 ==
LOC: EDBD → EDUNIT# → N.ED 17:51 → SUATTDRO 21:36 → N.EDINP 21:36 → N.5E 23:50 → N.CC 10-10 12:54 → N.2E 10-11 09:13
PROVIDERS: ADMIT Internal Medicine; ATTEND Internal Medicine

== ENCOUNTER 2017-10-25 17:57 | Inpatient (IN) ==
[2017-10-25] MEDS ORDERED: SODIUM CHLORIDE 0.9% 2,500 ML IV ONE (18:40)
[2017-10-25] MEDS ORDERED: CEFEPIME 2,000 MG in SODIUM CHLORIDE 0.9% 100 ML IV STA (18:43)
[2017-10-25] MEDS ORDERED: VANCOMYCIN INJ 1,000 MG in SODIUM CHLORIDE 0.9% 250 ML IV STA (18:43)
[2017-10-25] MEDS ORDERED: VANCOMYCIN 1,000 MG VIAL ONE (19:30)
[2017-10-25] MEDS ORDERED: CEFEPIME 2,000 MG in SYRINGE 1 EACH IV STA (19:31)
[2017-10-25 19:38] LABS: Basophils % 0.3 % (0.0-0.8); Hematocrit 27.6 VOL% (42.0-52.0); Hemoglobin 8.7 GM/DL (14.0-18.0); Immature Granulocytes % 1.6 %; Immature Granulocytes Absolute 0.25 #; Lymphocytes # 1.5 10*3/uL (1.4-4.0); Lymphocytes % 9.4 % (21.2-54.2); Mean Corpuscular HGB Conc 31.5 GM/DL (32-36); Mean Corpuscular Hemoglobin 24 PG (27-34); Mean Corpuscular Volume 76.2 FL (87-102); Mean Platelet Volume 9.4 FL (9.6-12.0); Monocytes # 0.7 10*3/uL (0.11-0.8); Monocytes % 4.2 % (1.7-12.7); NRBC # 0.03 10*3/uL; Neutrophils % 84.5 % (38.7-73.9); Platelet Count 450 T/CUMM (130-400); Red Blood Count 3.62 MC/CUMM (3.8-5.5); Red Cell Distribution Width 16.3 % (9.3-17.3); White Blood Count 15.4 T/CUMM (4-12)
[2017-10-25 19:54] LABS: Lactic Acid 2.2 MMOL/L (0.4-2.0)
[2017-10-25 20:11] LABS: Apearance,Urine Slightly Hazy (Clear); Bacteria,Urine Occasional /HPF (Few); Bilirubin,Urine Negative (Negative); Blood, Urine Negative (Negative); Glucose,Urine (UA) >=500 mg/dL (Negative); Granular Casts,Urine 4 /LPF (0-1); Hyaline Casts,Urine 4 /LPF (0-3); Ketones,Urine Negative (Negative); Mucus,Urine Occasional /LPF (Occasional); Nitrite,Urine Negative (Negative); Protein,Urine 30 MG/DL; RBC,Urine 1 /HPF (0-4); Squamous Epithelial Cell,Urine Occasional /HPF (0-10); Urine Color Yellow (Yellow); Urine Urobilinogen < 2.0 EU/DL (0.2-1.0); WBC,Urine 2 /HPF (0-6)
[2017-10-25 20:25] LABS: Alanine Aminotransferase 66 U/L (16-61); Albumin 2.4 G/DL (3.4-5.0); Alkaline Phosphatase 89 U/L (45-117); Aspartate Amino Transferase 27 U/L (0-37); Bilirubin,Total < 0.39 MG/DL (0.2-1.0); Blood Urea Nitrogen 31 MG/DL (7-18); Calcium 9.1 MG/DL (8.5-10.1); Glucose 301 MG/DL (74-106); Osmolality,Calculated 318.7 MOS/KG (273-304); Potassium 4.1 MMOL/L (3.5-5.1); Sodium 152 MMOL/L (136-145); Total Protein 7.4 G/DL (6.4-8.3)
[2017-10-25] MEDS ORDERED: hydrALAZINE 20 MG/1 ML VIAL IV STA (22:12)
[2017-10-25] MEDS ORDERED: hydrALAZINE 20 MG/1 ML VIAL ONE (22:13)
[2017-10-25] MEDS ORDERED: ONDANSETRON 4 MG/2 ML VIAL IV PRN (23:35)
[2017-10-25] MEDS ORDERED: DEXTROSE 50% 25 GM/50 ML VIAL IV PRN (23:35)
[2017-10-25] MEDS ORDERED: GLUCAGON 1 MG VIAL IM PRN (23:35)
[2017-10-25] MEDS ORDERED: ACETAMINOPHEN 325 MG TABLET PEG PRN (23:35)
[2017-10-26] MEDS: CARVEDILOL 12.5 MG TABLET PEG SCH ×3 (00:26→22:16)
[2017-10-26] MEDS: LOVASTATIN 20 MG TABLET PEG SCH ×2 (00:27→22:14)
[2017-10-26] MEDS: cefTRIAXone 1,000 MG in SYRINGE 1 EACH IV SCH ×3 (00:28→22:44)
[2017-10-26] MEDS: BRIMONIDINE/TIMOLOL OPH SOLN 5 ML BOTTLE LEFT EYE SCH ×2 (01:27→22:17)
[2017-10-26] MEDS: BIMATOPROST 0.01% OPH SOLN 2.5 ML BOTTLE LEFT EYE SCH ×2 (01:27→22:16)
[2017-10-26] MEDS: SODIUM BICARB INJ 50 MEQ in STERILE WATER INJ 1,000 ML IV SCH ×2 (01:28→11:21)
[2017-10-26 07:10] LABS: Calcium 9.3 MG/DL (8.5-10.1); Magnesium 2.2 MG/DL (1.8-2.4); Osmolality,Calculated 317.7 MOS/KG (273-304); Potassium 4.2 MMOL/L (3.5-5.1)
[2017-10-26] MEDS: INSULIN REGULAR 100 UNIT/ML SUBCUT SCH ×4 (10:25→22:15)
[2017-10-26] MEDS: ENOXAPARIN 40 MG/0.4 ML SYRINGE SUBCUT SCH (11:07)
[2017-10-26] MEDS: DOCUSATE SODIUM 100 MG CAPSULE PEG SCH ×2 (11:08→22:14)
[2017-10-26] MEDS: FERROUS SULFATE 325 MG TABLET PO SCH ×3 (11:08→22:14)
[2017-10-26] MEDS: PANTOPRAZOLE 40 MG VIAL IV SCH (11:08)
[2017-10-26] MEDS: amLODIPine 10 MG TABLET PEG SCH (11:08)
[2017-10-26] MEDS: LISINOPRIL 5 MG TABLET PEG SCH (11:08)
[2017-10-26 14:43] LABS: Potassium 3.9 MMOL/L (3.5-5.1)
[2017-10-27 07:46] LABS: Calcium 9.3 MG/DL (8.5-10.1); Magnesium 2.4 MG/DL (1.8-2.4); Osmolality,Calculated 316.4 MOS/KG (273-304); Phosphorous 3.2 MG/DL (2.5-4.9); Potassium 4.3 MMOL/L (3.5-5.1); Prealbumin 21.6 MG/DL (20-40)
[2017-10-27] MEDS: ENOXAPARIN 40 MG/0.4 ML SYRINGE SUBCUT SCH (10:09)
[2017-10-27] MEDS: INSULIN REGULAR 100 UNIT/ML SUBCUT SCH ×4 (10:09→21:20)
[2017-10-27] MEDS: CARVEDILOL 12.5 MG TABLET PEG SCH ×2 (10:09→20:40)
[2017-10-27] MEDS: FERROUS SULFATE 325 MG TABLET PO SCH ×3 (10:09→20:39)
[2017-10-27] MEDS: DOCUSATE SODIUM 100 MG CAPSULE PEG SCH ×2 (10:09→20:39)
[2017-10-27] MEDS: amLODIPine 10 MG TABLET PEG SCH (10:10)
[2017-10-27] MEDS: LISINOPRIL 5 MG TABLET PEG SCH (10:10)
[2017-10-27] MEDS: PANTOPRAZOLE 40 MG VIAL IV SCH (10:10)
[2017-10-27] MEDS: cefTRIAXone 1,000 MG in SYRINGE 1 EACH IV SCH ×2 (11:47→23:14)
[2017-10-27] MEDS: CHLORHEXIDINE 0.12% ORAL RINSE 60 ML BOTTLE SWISH/SPIT SCH ×2 (14:46→20:41)
[2017-10-27] MEDS: LOVASTATIN 20 MG TABLET PEG SCH (20:40)
[2017-10-27] MEDS: BRIMONIDINE/TIMOLOL OPH SOLN 5 ML BOTTLE LEFT EYE SCH (20:41)
[2017-10-27] MEDS: BIMATOPROST 0.01% OPH SOLN 2.5 ML BOTTLE LEFT EYE SCH (20:41)
[2017-10-27] MEDS ORDERED: CHLORHEXIDINE 0.12% ORAL RINSE 60 ML BOTTLE SWISH/SPIT SCH (21:00)
[2017-10-28 06:32] LABS: Basophils % 0.5 % (0.0-0.8); Eosinophils # 0.1 10*3/uL (0.0-0.87); Eosinophils % 1.2 % (0.00-10.9); Hemoglobin 10.1 GM/DL (14.0-18.0); Immature Granulocytes % 0.8 %; Immature Granulocytes Absolute 0.07 #; Lymphocytes % 11.8 % (21.2-54.2); Mean Corpuscular HGB Conc 30.6 GM/DL (32-36); Mean Corpuscular Hemoglobin 24 PG (27-34); Mean Corpuscular Volume 76.7 FL (87-102); Mean Platelet Volume 9.8 FL (9.6-12.0); Monocytes # 0.6 10*3/uL (0.11-0.8); Monocytes % 7.2 % (1.7-12.7); NRBC # 0.03 10*3/uL; Neutrophils # 6.8 10*3/uL (1.4-7.4); Neutrophils % 78.5 % (38.7-73.9); Red Cell Distribution Width 16.6 % (9.3-17.3)
[2017-10-28 06:47] LABS: Platelet Count 342 T/CUMM (130-400); White Blood Count 8.6 T/CUMM (4-12)
[2017-10-28 06:52] LABS: Calcium 9.3 MG/DL (8.5-10.1); Osmolality,Calculated 314.7 MOS/KG (273-304); Potassium 4.3 MMOL/L (3.5-5.1)
[2017-10-28] MEDS: INSULIN REGULAR 100 UNIT/ML SUBCUT SCH ×4 (08:37→21:21)
[2017-10-28] MEDS: CARVEDILOL 12.5 MG TABLET PEG SCH ×3 (08:37→21:22)
[2017-10-28] MEDS: FERROUS SULFATE 325 MG TABLET PO SCH ×3 (08:37→21:22)
[2017-10-28] MEDS: DOCUSATE SODIUM 100 MG CAPSULE PEG SCH ×2 (08:37→21:22)
[2017-10-28] MEDS: amLODIPine 10 MG TABLET PEG SCH ×2 (08:38→15:06)
[2017-10-28] MEDS: PANTOPRAZOLE 40 MG VIAL IV SCH (08:38)
[2017-10-28] MEDS: CHLORHEXIDINE 0.12% ORAL RINSE 60 ML BOTTLE SWISH/SPIT SCH ×2 (08:38→21:22)
[2017-10-28] MEDS: LISINOPRIL 5 MG TABLET PEG SCH ×2 (08:38→15:06)
[2017-10-28] MEDS: hydrALAZINE 20 MG/1 ML VIAL IV PRN ×2 (08:38→12:30)
[2017-10-28] MEDS: ENOXAPARIN 40 MG/0.4 ML SYRINGE SUBCUT SCH (08:38)
[2017-10-28] MEDS: cefTRIAXone 1,000 MG in SYRINGE 1 EACH IV SCH ×2 (11:34→23:27)
[2017-10-28] MEDS: LOVASTATIN 20 MG TABLET PEG SCH (21:22)
[2017-10-28] MEDS: BRIMONIDINE/TIMOLOL OPH SOLN 5 ML BOTTLE LEFT EYE SCH (21:23)
[2017-10-28] MEDS: BIMATOPROST 0.01% OPH SOLN 2.5 ML BOTTLE LEFT EYE SCH (21:23)
[2017-10-29] MEDS: hydrALAZINE 20 MG/1 ML VIAL IV PRN ×2 (04:06→11:30)
[2017-10-29 07:29] LABS: Basophils % 0.4 % (0.0-0.8); Eosinophils # 0.1 10*3/uL (0.0-0.87); Eosinophils % 0.8 % (0.00-10.9); Hematocrit 32.3 VOL% (42.0-52.0); Immature Granulocytes % 0.9 %; Immature Granulocytes Absolute 0.09 #; Lymphocytes # 1.3 10*3/uL (1.4-4.0); Lymphocytes % 12.4 % (21.2-54.2); Mean Corpuscular Hemoglobin 24 PG (27-34); Mean Corpuscular Volume 77.5 FL (87-102); Mean Platelet Volume 9.7 FL (9.6-12.0); Monocytes # 0.7 10*3/uL (0.11-0.8); Monocytes % 6.5 % (1.7-12.7); NRBC # 0.03 10*3/uL; Platelet Count 316 T/CUMM (130-400); Red Blood Count 4.17 MC/CUMM (3.8-5.5); Red Cell Distribution Width 16.7 % (9.3-17.3); White Blood Count 10.1 T/CUMM (4-12)
[2017-10-29 08:03] LABS: Calcium 9.4 MG/DL (8.5-10.1); Magnesium 2.6 MG/DL (1.8-2.4); Osmolality,Calculated 313.9 MOS/KG (273-304); Phosphorous 3.9 MG/DL (2.5-4.9); Potassium 4.1 MMOL/L (3.5-5.1); Prealbumin 24.5 MG/DL (20-40)
[2017-10-29] MEDS: INSULIN REGULAR 100 UNIT/ML SUBCUT SCH ×4 (08:04→21:33)
[2017-10-29] MEDS: PANTOPRAZOLE 40 MG VIAL IV SCH (08:04)
[2017-10-29] MEDS: CHLORHEXIDINE 0.12% ORAL RINSE 60 ML BOTTLE SWISH/SPIT SCH ×2 (08:12→20:29)
[2017-10-29] MEDS: CARVEDILOL 12.5 MG TABLET PEG SCH ×3 (08:12→20:26)
[2017-10-29] MEDS: ENOXAPARIN 40 MG/0.4 ML SYRINGE SUBCUT SCH (08:12)
[2017-10-29] MEDS: DOCUSATE SODIUM 100 MG CAPSULE PEG SCH ×2 (08:12→20:26)
[2017-10-29] MEDS: amLODIPine 10 MG TABLET PEG SCH (08:12)
[2017-10-29] MEDS: LISINOPRIL 5 MG TABLET PEG SCH ×2 (08:12→14:40)
[2017-10-29] MEDS: FERROUS SULFATE 325 MG TABLET PO SCH ×3 (08:12→20:25)
[2017-10-29] MEDS: cefTRIAXone 1,000 MG in SYRINGE 1 EACH IV SCH (11:13)
[2017-10-29] MEDS ORDERED: CHLORHEXIDINE 0.12% ORAL RINSE 60 ML BOTTLE SWISH/SPIT ONE (11:49)
[2017-10-29] MEDS ORDERED: SEVOFLURANE 1 UNIT/15 MINUTE INH ONE (13:04)
[2017-10-29] MEDS ORDERED: PROPOFOL 200 MG/20 ML VIAL IV ONE (13:04)
[2017-10-29] MEDS ORDERED: ONDANSETRON 4 MG/2 ML VIAL ONE (13:05)
[2017-10-29] MEDS: DEXTROSE 5% 1,000 ML IV SCH (17:58)
[2017-10-29] MEDS: LOVASTATIN 20 MG TABLET PEG SCH (20:26)
[2017-10-29] MEDS: BRIMONIDINE/TIMOLOL OPH SOLN 5 ML BOTTLE LEFT EYE SCH (20:27)
[2017-10-29] MEDS: BIMATOPROST 0.01% OPH SOLN 2.5 ML BOTTLE LEFT EYE SCH (20:27)
[2017-10-30] MEDS: cefTRIAXone 1,000 MG in SYRINGE 1 EACH IV SCH ×3 (00:13→23:29)
[2017-10-30 06:26] LABS: Calcium 8.3 MG/DL (8.5-10.1); Osmolality,Calculated 309.3 MOS/KG (273-304)
[2017-10-30] MEDS: INSULIN REGULAR 100 UNIT/ML SUBCUT SCH ×4 (10:53→21:58)
[2017-10-30] MEDS: DOCUSATE SODIUM 100 MG CAPSULE PEG SCH ×2 (11:00→21:32)
[2017-10-30] MEDS: PANTOPRAZOLE 40 MG VIAL IV SCH (11:01)
[2017-10-30] MEDS: LISINOPRIL 5 MG TABLET PEG SCH (11:01)
[2017-10-30] MEDS: FERROUS SULFATE 325 MG TABLET PO SCH ×3 (11:01→21:32)
[2017-10-30] MEDS: CHLORHEXIDINE 0.12% ORAL RINSE 60 ML BOTTLE SWISH/SPIT SCH ×2 (11:01→21:58)
[2017-10-30] MEDS: CARVEDILOL 12.5 MG TABLET PEG SCH ×2 (11:01→21:32)
[2017-10-30] MEDS: amLODIPine 10 MG TABLET PEG SCH (11:01)
[2017-10-30] MEDS: ENOXAPARIN 40 MG/0.4 ML SYRINGE SUBCUT SCH (11:01)
[2017-10-30] MEDS: DEXTROSE 5% 1,000 ML IV SCH (13:03)
[2017-10-30] MEDS: LOVASTATIN 20 MG TABLET PEG SCH (21:32)
[2017-10-30] MEDS: BRIMONIDINE/TIMOLOL OPH SOLN 5 ML BOTTLE LEFT EYE SCH (21:58)
[2017-10-30] MEDS: BIMATOPROST 0.01% OPH SOLN 2.5 ML BOTTLE LEFT EYE SCH (21:58)
[2017-10-31 07:27] LABS: Calcium 8.8 MG/DL (8.5-10.1); Osmolality,Calculated 301.7 MOS/KG (273-304); Potassium 4.2 MMOL/L (3.5-5.1)
[2017-10-31] MEDS: FERROUS SULFATE 325 MG TABLET PO SCH ×2 (09:10→14:40)
[2017-10-31] MEDS: amLODIPine 10 MG TABLET PEG SCH (09:10)
[2017-10-31] MEDS: CARVEDILOL 12.5 MG TABLET PEG SCH (09:10)
[2017-10-31] MEDS: LISINOPRIL 5 MG TABLET PEG SCH (09:11)
[2017-10-31] MEDS: DOCUSATE SODIUM 100 MG CAPSULE PEG SCH (09:11)
[2017-10-31] MEDS: INSULIN REGULAR 100 UNIT/ML SUBCUT SCH ×2 (09:12→12:10)
[2017-10-31] MEDS: ENOXAPARIN 40 MG/0.4 ML SYRINGE SUBCUT SCH (09:12)
[2017-10-31] MEDS: CHLORHEXIDINE 0.12% ORAL RINSE 60 ML BOTTLE SWISH/SPIT SCH (09:12)
[2017-10-31] MEDS: PANTOPRAZOLE 40 MG VIAL IV SCH (09:13)
[2017-10-31] MEDS: DEXTROSE 5% 1,000 ML IV SCH (09:17)
[2017-10-31] MEDS: cefTRIAXone 1,000 MG in SYRINGE 1 EACH IV SCH (11:11)
[2017-10-31] MEDS ORDERED: LEVOFLOXACIN 250 MG TABLET PEG SCH (13:00)
[2017-10-31 15:17] VITALS: BP 127/56
== END 2017-10-31 15:35 | DRG 872 ==
LOC: EDUNIT# → EDBD → N.ED 17:57 → SUATTDRO 21:36 → N.EDINP 21:36 → N.5E 22:23
PROVIDERS: ADMIT Internal Medicine; ATTEND Hospitalist

== ENCOUNTER 2017-11-20 07:58 | Inpatient (IN) ==
[2017-11-20] MEDS ORDERED: cefTRIAXone 1,000 MG in SODIUM CHLORIDE 0.9% 100 ML IV STA (08:17)
[2017-11-20 08:48] LABS: Basophils % 0.3 % (0.0-0.8); Eosinophils % 0.6 % (0.00-10.9); Hemoglobin 9.9 GM/DL (14.0-18.0); Immature Granulocytes % 0.3 %; Immature Granulocytes Absolute 0.02 #; Lymphocytes # 0.4 10*3/uL (1.4-4.0); Mean Corpuscular HGB Conc 30.9 GM/DL (32-36); Mean Corpuscular Hemoglobin 24 PG (27-34); Mean Corpuscular Volume 76.4 FL (87-102); Mean Platelet Volume 9.9 FL (9.6-12.0); Monocytes # 0.3 10*3/uL (0.11-0.8); Monocytes % 4.8 % (1.7-12.7); NRBC # 0.02 10*3/uL; Neutrophils # 5.5 10*3/uL (1.4-7.4); Platelet Count 267 T/CUMM (130-400); Red Blood Count 4.19 MC/CUMM (3.8-5.5); Red Cell Distribution Width 16.3 % (9.3-17.3); White Blood Count 6.3 T/CUMM (4-12)
[2017-11-20 09:09] LABS: Band Neutrophils 9 % (0-10); Giant Platelets Few; Hypochromasia 1+; Lymphocytes 2 % (20-55); Ovalocytes Slight; Platelet Estimate Adequate; Segmented Neutrophils 85 % (50-85); Total Cells Counted 100
[2017-11-20 09:10] LABS: Microcytosis Slight
[2017-11-20] MEDS ORDERED: cefTRIAXone 1,000 MG VIAL ONE (09:10)
[2017-11-20 09:49] LABS: Albumin 3.2 G/DL (3.4-5.0); Bilirubin,Total 0.6 MG/DL (0.2-1.0); Calcium 9.6 MG/DL (8.5-10.1); Osmolality,Calculated 286.7 MOS/KG (273-304); Potassium 3.8 MMOL/L (3.5-5.1); Total Protein 7.7 G/DL (6.4-8.3)
[2017-11-20] MEDS ORDERED: ACETAMINOPHEN 325 MG TABLET PO PRN (11:32)
[2017-11-20] MEDS ORDERED: ONDANSETRON 4 MG/2 ML VIAL IV PRN (11:32)
[2017-11-20] MEDS ORDERED: DEXTROSE 50% 25 GM/50 ML VIAL IV PRN (11:36)
[2017-11-20] MEDS ORDERED: GLUCAGON 1 MG VIAL IM PRN (11:36)
[2017-11-20] MEDS ORDERED: ENOXAPARIN 40 MG/0.4 ML SYRINGE ONE (14:29)
[2017-11-20] MEDS ORDERED: FUROSEMIDE 40 MG/4 ML VIAL ONE (14:29)
[2017-11-20] MEDS: ENOXAPARIN 40 MG/0.4 ML SYRINGE SUBCUT SCH (15:32)
[2017-11-20] MEDS: INSULIN LISPRO 100 UNIT/ML SUBCUT SCH ×2 (17:34→20:57)
[2017-11-20] MEDS: methylPREDNISolone SOD SUC 40 MG/1 ML VIAL IV SCH (20:57)
[2017-11-20] MEDS: CLINDAMYCIN INJ 600 MG in PREMIX 1 EACH IV SCH (20:58)
[2017-11-20] MEDS: PIPERACILLIN/TAZOBACTAM 3,375 MG in SODIUM CHLORIDE 0.9% 100 ML IV SCH (21:47)
[2017-11-21] MEDS: ALBUTEROL/IPRATROPIUM 3 ML NEB RESP TX SCH ×4 (00:16→20:58)
[2017-11-21] MEDS: methylPREDNISolone SOD SUC 40 MG/1 ML VIAL IV SCH ×3 (03:30→20:35)
[2017-11-21] MEDS: CLINDAMYCIN INJ 600 MG in PREMIX 1 EACH IV SCH ×3 (04:13→20:35)
[2017-11-21] MEDS: PIPERACILLIN/TAZOBACTAM 3,375 MG in SODIUM CHLORIDE 0.9% 100 ML IV SCH ×3 (05:01→22:06)
[2017-11-21 06:46] LABS: Basophils % 0.1 % (0.0-0.8); Hematocrit 28.8 VOL% (42.0-52.0); Hemoglobin 9.2 GM/DL (14.0-18.0); Immature Granulocytes % 1.2 %; Immature Granulocytes Absolute 0.15 #; Lymphocytes # 0.5 10*3/uL (1.4-4.0); Lymphocytes % 4.1 % (21.2-54.2); Mean Corpuscular HGB Conc 31.9 GM/DL (32-36); Mean Corpuscular Hemoglobin 24 PG (27-34); Mean Corpuscular Volume 74.8 FL (87-102); Mean Platelet Volume 10.6 FL (9.6-12.0); Monocytes # 0.4 10*3/uL (0.11-0.8); Monocytes % 3.2 % (1.7-12.7); Neutrophils # 11.4 10*3/uL (1.4-7.4); Neutrophils % 91.4 % (38.7-73.9); Platelet Count 244 T/CUMM (130-400); Red Blood Count 3.85 MC/CUMM (3.8-5.5); Red Cell Distribution Width 16.3 % (9.3-17.3); White Blood Count 12.5 T/CUMM (4-12)
[2017-11-21 07:23] LABS: Osmolality,Calculated 306.1 MOS/KG (273-304); Potassium 3.4 MMOL/L (3.5-5.1)
[2017-11-21 08:04] LABS: Band Neutrophils 32 % (0-10); Hypochromasia 2+; Lymphocytes 1 % (20-55); Microcytosis 1+; Platelet Estimate Adequate; Segmented Neutrophils 59 % (50-85); Total Cells Counted 100
[2017-11-21] MEDS: FUROSEMIDE 40 MG/4 ML VIAL IV SCH (08:43)
[2017-11-21] MEDS: INSULIN LISPRO 100 UNIT/ML SUBCUT SCH ×6 (08:46→21:10)
[2017-11-21] MEDS: ENOXAPARIN 40 MG/0.4 ML SYRINGE SUBCUT SCH (13:12)
[2017-11-22] MEDS: ALBUTEROL/IPRATROPIUM 3 ML NEB RESP TX SCH ×4 (01:33→20:03)
[2017-11-22] MEDS: methylPREDNISolone SOD SUC 40 MG/1 ML VIAL IV SCH ×3 (03:32→23:35)
[2017-11-22] MEDS: CLINDAMYCIN INJ 600 MG in PREMIX 1 EACH IV SCH ×3 (04:20→20:11)
[2017-11-22] MEDS: PIPERACILLIN/TAZOBACTAM 3,375 MG in SODIUM CHLORIDE 0.9% 100 ML IV SCH ×3 (05:02→21:35)
[2017-11-22] MEDS: FUROSEMIDE 40 MG/4 ML VIAL IV SCH (08:35)
[2017-11-22] MEDS: INSULIN LISPRO 100 UNIT/ML SUBCUT SCH ×4 (08:35→20:14)
[2017-11-22] MEDS: ENOXAPARIN 40 MG/0.4 ML SYRINGE SUBCUT SCH (12:27)
[2017-11-22] MEDS: INSULIN GLARGINE 100 UNIT/ML SUBCUT SCH (13:22)
[2017-11-22] MEDS: FERROUS SULFATE 300 MG/5 ML UDCUP PEG SCH ×2 (15:58→20:12)
[2017-11-22] MEDS: PANTOPRAZOLE 40 MG TABLET PO SCH (15:58)
[2017-11-22] MEDS: CARVEDILOL 12.5 MG TABLET PEG SCH (17:03)
[2017-11-22] MEDS: DOCUSATE SODIUM 100 MG CAPSULE PEG SCH (20:01)
[2017-11-22] MEDS: LOVASTATIN 20 MG TABLET PEG SCH (20:12)
[2017-11-22] MEDS: BRIMONIDINE/TIMOLOL OPH SOLN 5 ML BOTTLE LEFT EYE SCH (20:13)
[2017-11-22] MEDS: WHITE PETROLATUM 30 GM TUBE TOP SCH (20:13)
[2017-11-22] MEDS: CHLORHEXIDINE 0.12% ORAL RINSE 60 ML BOTTLE SWISH/SPIT SCH (20:13)
[2017-11-22] MEDS: BIMATOPROST 0.01% OPH SOLN 2.5 ML BOTTLE LEFT EYE SCH (20:13)
[2017-11-22] MEDS: MOISTURIZING CREAM (EUCERIN) 113 GM JAR TOP SCH (20:14)
[2017-11-23] MEDS: ALBUTEROL/IPRATROPIUM 3 ML NEB RESP TX SCH ×4 (01:41→19:35)
[2017-11-23] MEDS: CLINDAMYCIN INJ 600 MG in PREMIX 1 EACH IV SCH ×3 (04:28→20:58)
[2017-11-23] MEDS: PIPERACILLIN/TAZOBACTAM 3,375 MG in SODIUM CHLORIDE 0.9% 100 ML IV SCH ×3 (05:22→21:00)
[2017-11-23 06:54] LABS: Calcium 9.3 MG/DL (8.5-10.1); Osmolality,Calculated 310.8 MOS/KG (273-304)
[2017-11-23] MEDS ORDERED: LISINOPRIL 5 MG TABLET PEG SCH (09:00)
[2017-11-23] MEDS: INSULIN GLARGINE 100 UNIT/ML SUBCUT SCH (09:07)
[2017-11-23] MEDS: INSULIN LISPRO 100 UNIT/ML SUBCUT SCH ×4 (09:08→20:57)
[2017-11-23] MEDS: CARVEDILOL 12.5 MG TABLET PEG SCH ×2 (09:09→16:24)
[2017-11-23] MEDS: FUROSEMIDE 40 MG TABLET PO SCH (09:09)
[2017-11-23] MEDS: DOCUSATE SODIUM 100 MG CAPSULE PEG SCH ×2 (09:09→20:57)
[2017-11-23] MEDS: amLODIPine 10 MG TABLET PEG SCH (09:09)
[2017-11-23] MEDS: FERROUS SULFATE 300 MG/5 ML UDCUP PEG SCH ×3 (09:10→21:00)
[2017-11-23] MEDS: CHLORHEXIDINE 0.12% ORAL RINSE 60 ML BOTTLE SWISH/SPIT SCH ×2 (09:10→21:00)
[2017-11-23] MEDS: FUROSEMIDE 40 MG/4 ML VIAL IV SCH (09:10)
[2017-11-23] MEDS: MOISTURIZING CREAM (EUCERIN) 113 GM JAR TOP SCH ×2 (09:13→21:00)
[2017-11-23] MEDS: WHITE PETROLATUM 30 GM TUBE TOP SCH ×2 (12:57→21:00)
[2017-11-23] MEDS: ENOXAPARIN 40 MG/0.4 ML SYRINGE SUBCUT SCH (13:23)
[2017-11-23] MEDS: methylPREDNISolone SOD SUC 40 MG/1 ML VIAL IV SCH ×2 (13:23→23:41)
[2017-11-23] MEDS ORDERED: NIFEdipine 10 MG CAPSULE PO PRN (13:54)
[2017-11-23] MEDS: PANTOPRAZOLE 40 MG TABLET PO SCH (16:24)
[2017-11-23] MEDS: BRIMONIDINE/TIMOLOL OPH SOLN 5 ML BOTTLE LEFT EYE SCH (20:58)
[2017-11-23] MEDS: ZINC OXIDE PASTE 113 GM TUBE TOP PRN (20:58)
[2017-11-23] MEDS: BIMATOPROST 0.01% OPH SOLN 2.5 ML BOTTLE LEFT EYE SCH (20:58)
[2017-11-23] MEDS: LOVASTATIN 20 MG TABLET PEG SCH (20:58)
[2017-11-24] MEDS: ALBUTEROL/IPRATROPIUM 3 ML NEB RESP TX SCH ×4 (01:51→19:19)
[2017-11-24 02:33] LABS: Apearance,Urine Slightly Hazy (Clear); Bacteria,Urine Occasional /HPF (Few); Bilirubin,Urine Negative (Negative); Blood, Urine Negative (Negative); Glucose,Urine (UA) >=500 mg/dL (Negative); Ketones,Urine Negative (Negative); Mucus,Urine Occasional /LPF (Occasional); Nitrite,Urine Negative (Negative); Protein,Urine 100 MG/DL; RBC,Urine 1 /HPF (0-4); Urine Color Yellow (Yellow); Urine Specific Gravity 1.011 (1.001-1.035); Urine Urobilinogen < 2.0 EU/DL (0.2-1.0)
[2017-11-24] MEDS: CLINDAMYCIN INJ 600 MG in PREMIX 1 EACH IV SCH ×3 (05:36→21:07)
[2017-11-24] MEDS: PIPERACILLIN/TAZOBACTAM 3,375 MG in SODIUM CHLORIDE 0.9% 100 ML IV SCH ×3 (06:14→21:50)
[2017-11-24 06:31] LABS: Calcium 9.1 MG/DL (8.5-10.1); Osmolality,Calculated 318.4 MOS/KG (273-304); Potassium 2.9 MMOL/L (3.5-5.1)
[2017-11-24] MEDS ORDERED: POTASSIUM CHLORIDE 20 MEQ TABLET PO PRN (10:16)
[2017-11-24] MEDS: amLODIPine 10 MG TABLET PEG SCH (11:49)
[2017-11-24] MEDS: LISINOPRIL 20 MG TABLET PEG SCH (11:49)
[2017-11-24] MEDS: INSULIN LISPRO 100 UNIT/ML SUBCUT SCH ×4 (11:50→22:28)
[2017-11-24] MEDS: FERROUS SULFATE 300 MG/5 ML UDCUP PEG SCH ×3 (11:50→21:06)
[2017-11-24] MEDS: FUROSEMIDE 40 MG TABLET PO SCH (11:50)
[2017-11-24] MEDS: CARVEDILOL 12.5 MG TABLET PEG SCH (11:50)
[2017-11-24] MEDS: FUROSEMIDE 40 MG/4 ML VIAL IV SCH (11:50)
[2017-11-24] MEDS: INSULIN GLARGINE 100 UNIT/ML SUBCUT SCH (11:51)
[2017-11-24] MEDS: CHLORHEXIDINE 0.12% ORAL RINSE 60 ML BOTTLE SWISH/SPIT SCH ×2 (11:52→21:13)
[2017-11-24] MEDS: DOCUSATE SODIUM 100 MG CAPSULE PEG SCH ×2 (11:52→21:06)
[2017-11-24] MEDS: WHITE PETROLATUM 30 GM TUBE TOP SCH ×2 (11:53→21:13)
[2017-11-24] MEDS: FLUCONAZOLE 40 MG/ML 35 ML/BOTTLE PER TUBE SCH (11:53)
[2017-11-24] MEDS: MOISTURIZING CREAM (EUCERIN) 113 GM JAR TOP SCH ×2 (11:53→21:13)
[2017-11-24] MEDS: methylPREDNISolone SOD SUC 40 MG/1 ML VIAL IV SCH ×2 (13:29→23:27)
[2017-11-24] MEDS: ENOXAPARIN 40 MG/0.4 ML SYRINGE SUBCUT SCH (13:30)
[2017-11-24] MEDS: cloNIDine 0.1 MG TABLET PO PRN (16:49)
[2017-11-24] MEDS: POTASSIUM CHLORIDE 20 MEQ/15 ML UDCUP PER TUBE SCH ×2 (16:50→21:05)
[2017-11-24] MEDS: PANTOPRAZOLE 40 MG TABLET PO SCH (16:50)
[2017-11-24] MEDS: CARVEDILOL 25 MG TABLET PEG SCH (18:30)
[2017-11-24] MEDS: LOVASTATIN 20 MG TABLET PEG SCH (21:06)
[2017-11-24] MEDS: BRIMONIDINE/TIMOLOL OPH SOLN 5 ML BOTTLE LEFT EYE SCH (21:06)
[2017-11-24] MEDS: BIMATOPROST 0.01% OPH SOLN 2.5 ML BOTTLE LEFT EYE SCH (21:06)
[2017-11-24] MEDS ORDERED: ALBUTEROL/IPRATROPIUM 3 ML NEB RESP TX PRN (21:26)
[2017-11-25] MEDS: POTASSIUM CHLORIDE 20 MEQ/15 ML UDCUP PER TUBE SCH ×2 (00:57→03:51)
[2017-11-25] MEDS ORDERED: FUROSEMIDE 40 MG/4 ML VIAL IV ONE (01:54)
[2017-11-25] MEDS: CLINDAMYCIN INJ 600 MG in PREMIX 1 EACH IV SCH ×3 (05:30→21:05)
[2017-11-25] MEDS: PIPERACILLIN/TAZOBACTAM 3,375 MG in SODIUM CHLORIDE 0.9% 100 ML IV SCH ×3 (06:02→23:52)
[2017-11-25 06:16] LABS: Calcium 8.5 MG/DL (8.5-10.1); Osmolality,Calculated 336.4 MOS/KG (273-304); Potassium 4.1 MMOL/L (3.5-5.1)
[2017-11-25] MEDS: ALBUTEROL/IPRATROPIUM 3 ML NEB RESP TX SCH ×4 (06:59→19:54)
[2017-11-25] MEDS: INSULIN LISPRO 100 UNIT/ML SUBCUT SCH ×2 (07:28→12:37)
[2017-11-25] MEDS ORDERED: FUROSEMIDE 40 MG/4 ML VIAL IV SCH (09:00)
[2017-11-25] MEDS: FERROUS SULFATE 300 MG/5 ML UDCUP PEG SCH ×3 (09:20→21:04)
[2017-11-25] MEDS: DOCUSATE SODIUM 100 MG CAPSULE PEG SCH ×2 (09:21→21:03)
[2017-11-25] MEDS: CARVEDILOL 25 MG TABLET PEG SCH ×2 (09:21→17:12)
[2017-11-25] MEDS: amLODIPine 10 MG TABLET PEG SCH (09:21)
[2017-11-25] MEDS: LISINOPRIL 20 MG TABLET PEG SCH (09:21)
[2017-11-25] MEDS: INSULIN GLARGINE 100 UNIT/ML SUBCUT SCH (09:22)
[2017-11-25] MEDS: CHLORHEXIDINE 0.12% ORAL RINSE 60 ML BOTTLE SWISH/SPIT SCH ×2 (09:23→21:04)
[2017-11-25] MEDS: MOISTURIZING CREAM (EUCERIN) 113 GM JAR TOP SCH ×2 (09:24→21:04)
[2017-11-25] MEDS: WHITE PETROLATUM 30 GM TUBE TOP SCH ×2 (09:24→21:04)
[2017-11-25] MEDS: ENOXAPARIN 40 MG/0.4 ML SYRINGE SUBCUT SCH (12:36)
[2017-11-25] MEDS: methylPREDNISolone SOD SUC 40 MG/1 ML VIAL IV SCH ×2 (12:37→21:25)
[2017-11-25] MEDS: FLUCONAZOLE 40 MG/ML 35 ML/BOTTLE PER TUBE SCH (12:38)
[2017-11-25] MEDS: PANTOPRAZOLE 40 MG TABLET PO SCH (17:12)
[2017-11-25] MEDS: INSULIN REGULAR 100 UNIT/ML SUBCUT SCH (18:08)
[2017-11-25] MEDS: BIMATOPROST 0.01% OPH SOLN 2.5 ML BOTTLE LEFT EYE SCH (21:03)
[2017-11-25] MEDS: LOVASTATIN 20 MG TABLET PEG SCH (21:03)
[2017-11-25] MEDS: BRIMONIDINE/TIMOLOL OPH SOLN 5 ML BOTTLE LEFT EYE SCH (21:04)
[2017-11-26] MEDS: cloNIDine 0.1 MG TABLET PO PRN ×2 (00:58→02:29)
[2017-11-26] MEDS: ALBUTEROL/IPRATROPIUM 3 ML NEB RESP TX SCH ×4 (01:02→20:29)
[2017-11-26] MEDS: CLINDAMYCIN INJ 600 MG in PREMIX 1 EACH IV SCH ×3 (05:18→21:33)
[2017-11-26] MEDS: INSULIN REGULAR 100 UNIT/ML SUBCUT SCH ×4 (06:32→18:13)
[2017-11-26 07:13] LABS: Osmolality,Calculated 343.9 MOS/KG (273-304); Prealbumin 15.2 MG/DL (20-40)
[2017-11-26] MEDS: PIPERACILLIN/TAZOBACTAM 3,375 MG in SODIUM CHLORIDE 0.9% 100 ML IV SCH ×3 (09:41→23:53)
[2017-11-26] MEDS: methylPREDNISolone SOD SUC 40 MG/1 ML VIAL IV SCH ×2 (09:42→21:37)
[2017-11-26] MEDS: DOCUSATE SODIUM 100 MG CAPSULE PEG SCH ×2 (09:47→21:31)
[2017-11-26] MEDS: CARVEDILOL 25 MG TABLET PEG SCH ×2 (09:47→16:26)
[2017-11-26] MEDS: FERROUS SULFATE 300 MG/5 ML UDCUP PEG SCH ×3 (09:47→21:30)
[2017-11-26] MEDS: amLODIPine 10 MG TABLET PEG SCH (09:47)
[2017-11-26] MEDS: LISINOPRIL 20 MG TABLET PEG SCH (09:47)
[2017-11-26] MEDS: INSULIN GLARGINE 100 UNIT/ML SUBCUT SCH (09:48)
[2017-11-26] MEDS: FLUCONAZOLE 40 MG/ML 35 ML/BOTTLE PER TUBE SCH (09:51)
[2017-11-26] MEDS: MOISTURIZING CREAM (EUCERIN) 113 GM JAR TOP SCH ×2 (09:51→21:33)
[2017-11-26] MEDS: WHITE PETROLATUM 30 GM TUBE TOP SCH ×2 (09:51→22:04)
[2017-11-26] MEDS: CHLORHEXIDINE 0.12% ORAL RINSE 60 ML BOTTLE SWISH/SPIT SCH ×2 (09:51→21:32)
[2017-11-26] MEDS: ENOXAPARIN 40 MG/0.4 ML SYRINGE SUBCUT SCH (12:30)
[2017-11-26] MEDS: PANTOPRAZOLE 40 MG TABLET PO SCH (16:26)
[2017-11-26] MEDS: LOVASTATIN 20 MG TABLET PEG SCH (21:31)
[2017-11-26] MEDS: BIMATOPROST 0.01% OPH SOLN 2.5 ML BOTTLE LEFT EYE SCH (21:33)
[2017-11-26] MEDS: BRIMONIDINE/TIMOLOL OPH SOLN 5 ML BOTTLE LEFT EYE SCH (21:33)
[2017-11-27] MEDS: ALBUTEROL/IPRATROPIUM 3 ML NEB RESP TX SCH ×4 (01:16→20:23)
[2017-11-27] MEDS: CLINDAMYCIN INJ 600 MG in PREMIX 1 EACH IV SCH (05:47)
[2017-11-27] MEDS: INSULIN REGULAR 100 UNIT/ML SUBCUT SCH ×4 (06:33→19:10)
[2017-11-27 07:16] LABS: Calcium 8.6 MG/DL (8.5-10.1); Osmolality,Calculated 355.7 MOS/KG (273-304); Potassium 4.1 MMOL/L (3.5-5.1)
[2017-11-27] MEDS: PIPERACILLIN/TAZOBACTAM 3,375 MG in SODIUM CHLORIDE 0.9% 100 ML IV SCH (08:44)
[2017-11-27] MEDS ORDERED: DEXTROSE 5% 1,000 ML IV SCH (09:00)
[2017-11-27] MEDS: FERROUS SULFATE 300 MG/5 ML UDCUP PEG SCH ×3 (10:04→21:01)
[2017-11-27] MEDS: ENOXAPARIN 40 MG/0.4 ML SYRINGE SUBCUT SCH (10:05)
[2017-11-27] MEDS: INSULIN GLARGINE 100 UNIT/ML SUBCUT SCH (10:05)
[2017-11-27] MEDS: LISINOPRIL 20 MG TABLET PEG SCH (10:05)
[2017-11-27] MEDS: CEFUROXIME 250 MG TABLET PEG SCH ×2 (10:06→21:05)
[2017-11-27] MEDS: FLUCONAZOLE 40 MG/ML 35 ML/BOTTLE PER TUBE SCH (10:06)
[2017-11-27] MEDS: CARVEDILOL 25 MG TABLET PEG SCH ×2 (10:06→17:29)
[2017-11-27] MEDS: DOCUSATE SODIUM 100 MG CAPSULE PEG SCH ×2 (10:06→21:04)
[2017-11-27] MEDS: amLODIPine 10 MG TABLET PEG SCH (10:06)
[2017-11-27] MEDS: WHITE PETROLATUM 30 GM TUBE TOP SCH ×2 (10:07→21:05)
[2017-11-27] MEDS: MOISTURIZING CREAM (EUCERIN) 113 GM JAR TOP SCH ×2 (10:07→21:05)
[2017-11-27] MEDS: CHLORHEXIDINE 0.12% ORAL RINSE 60 ML BOTTLE SWISH/SPIT SCH ×2 (10:07→21:06)
[2017-11-27] MEDS: PANTOPRAZOLE 40 MG TABLET PO SCH (17:29)
[2017-11-27] MEDS: LOVASTATIN 20 MG TABLET PEG SCH (21:02)
[2017-11-27] MEDS: BRIMONIDINE/TIMOLOL OPH SOLN 5 ML BOTTLE LEFT EYE SCH (21:08)
[2017-11-27] MEDS: BIMATOPROST 0.01% OPH SOLN 2.5 ML BOTTLE LEFT EYE SCH (21:08)
[2017-11-28] MEDS: ALBUTEROL/IPRATROPIUM 3 ML NEB RESP TX SCH ×4 (00:33→20:07)
[2017-11-28] MEDS: INSULIN REGULAR 100 UNIT/ML SUBCUT SCH ×4 (00:45→17:00)
[2017-11-28 07:28] LABS: Calcium 8.6 MG/DL (8.5-10.1); Osmolality,Calculated 330.6 MOS/KG (273-304); Potassium 3.8 MMOL/L (3.5-5.1)
[2017-11-28] MEDS: ENOXAPARIN 40 MG/0.4 ML SYRINGE SUBCUT SCH (09:35)
[2017-11-28] MEDS: FERROUS SULFATE 300 MG/5 ML UDCUP PEG SCH ×3 (09:35→21:20)
[2017-11-28] MEDS: INSULIN GLARGINE 100 UNIT/ML SUBCUT SCH (09:35)
[2017-11-28] MEDS: LISINOPRIL 20 MG TABLET PEG SCH (09:36)
[2017-11-28] MEDS: CARVEDILOL 25 MG TABLET PEG SCH ×2 (09:36→16:50)
[2017-11-28] MEDS: CEFUROXIME 250 MG TABLET PEG SCH ×2 (09:36→21:20)
[2017-11-28] MEDS: amLODIPine 10 MG TABLET PEG SCH (09:36)
[2017-11-28] MEDS: DOCUSATE SODIUM 100 MG CAPSULE PEG SCH ×2 (09:36→21:20)
[2017-11-28] MEDS: CHLORHEXIDINE 0.12% ORAL RINSE 60 ML BOTTLE SWISH/SPIT SCH ×2 (09:37→21:21)
[2017-11-28] MEDS: WHITE PETROLATUM 30 GM TUBE TOP SCH ×2 (09:37→21:19)
[2017-11-28] MEDS: FLUCONAZOLE 40 MG/ML 35 ML/BOTTLE PER TUBE SCH (09:37)
[2017-11-28] MEDS: MOISTURIZING CREAM (EUCERIN) 113 GM JAR TOP SCH ×2 (09:38→21:19)
[2017-11-28] MEDS: PANTOPRAZOLE 40 MG TABLET PO SCH (16:49)
[2017-11-28] MEDS: BRIMONIDINE/TIMOLOL OPH SOLN 5 ML BOTTLE LEFT EYE SCH (21:19)
[2017-11-28] MEDS: BIMATOPROST 0.01% OPH SOLN 2.5 ML BOTTLE LEFT EYE SCH (21:19)
[2017-11-28] MEDS: LOVASTATIN 20 MG TABLET PEG SCH (21:20)
[2017-11-29] MEDS: INSULIN REGULAR 100 UNIT/ML SUBCUT SCH ×4 (00:21→17:52)
[2017-11-29] MEDS: ALBUTEROL/IPRATROPIUM 3 ML NEB RESP TX SCH ×4 (00:24→19:42)
[2017-11-29 06:41] LABS: Calcium 8.7 MG/DL (8.5-10.1); Osmolality,Calculated 327.9 MOS/KG (273-304); Potassium 4.3 MMOL/L (3.5-5.1)
[2017-11-29] MEDS: LISINOPRIL 20 MG TABLET PEG SCH (09:41)
[2017-11-29] MEDS: ENOXAPARIN 40 MG/0.4 ML SYRINGE SUBCUT SCH (09:41)
[2017-11-29] MEDS: CEFUROXIME 250 MG TABLET PEG SCH ×2 (09:41→20:31)
[2017-11-29] MEDS: amLODIPine 10 MG TABLET PEG SCH (09:41)
[2017-11-29] MEDS: DOCUSATE SODIUM 100 MG CAPSULE PEG SCH ×2 (09:42→20:31)
[2017-11-29] MEDS: FERROUS SULFATE 300 MG/5 ML UDCUP PEG SCH ×3 (09:42→20:30)
[2017-11-29] MEDS: WHITE PETROLATUM 30 GM TUBE TOP SCH ×2 (09:42→20:32)
[2017-11-29] MEDS: FLUCONAZOLE 40 MG/ML 35 ML/BOTTLE PER TUBE SCH (09:42)
[2017-11-29] MEDS: CHLORHEXIDINE 0.12% ORAL RINSE 60 ML BOTTLE SWISH/SPIT SCH ×2 (09:42→20:32)
[2017-11-29] MEDS: CARVEDILOL 25 MG TABLET PEG SCH ×2 (09:42→16:52)
[2017-11-29] MEDS: MOISTURIZING CREAM (EUCERIN) 113 GM JAR TOP SCH ×2 (09:42→20:32)
[2017-11-29] MEDS: INSULIN GLARGINE 100 UNIT/ML SUBCUT SCH (09:46)
[2017-11-29] MEDS: PANTOPRAZOLE 40 MG TABLET PO SCH (16:52)
[2017-11-29] MEDS: BIMATOPROST 0.01% OPH SOLN 2.5 ML BOTTLE LEFT EYE SCH (20:31)
[2017-11-29] MEDS: BRIMONIDINE/TIMOLOL OPH SOLN 5 ML BOTTLE LEFT EYE SCH (20:31)
[2017-11-29] MEDS: LOVASTATIN 20 MG TABLET PEG SCH (20:31)
[2017-11-30] MEDS: ALBUTEROL/IPRATROPIUM 3 ML NEB RESP TX SCH ×5 (00:15→23:54)
[2017-11-30] MEDS: INSULIN REGULAR 100 UNIT/ML SUBCUT SCH ×4 (00:59→17:20)
[2017-11-30] MEDS: ENOXAPARIN 40 MG/0.4 ML SYRINGE SUBCUT SCH (09:49)
[2017-11-30] MEDS: amLODIPine 10 MG TABLET PEG SCH (09:50)
[2017-11-30] MEDS: CARVEDILOL 25 MG TABLET PEG SCH ×2 (09:50→17:20)
[2017-11-30] MEDS: FERROUS SULFATE 300 MG/5 ML UDCUP PEG SCH ×3 (09:50→21:44)
[2017-11-30] MEDS: CEFUROXIME 250 MG TABLET PEG SCH ×2 (09:50→21:45)
[2017-11-30] MEDS: LISINOPRIL 20 MG TABLET PEG SCH (09:50)
[2017-11-30] MEDS: MOISTURIZING CREAM (EUCERIN) 113 GM JAR TOP SCH ×2 (09:55→21:48)
[2017-11-30] MEDS: INSULIN GLARGINE 100 UNIT/ML SUBCUT SCH (09:55)
[2017-11-30] MEDS: DOCUSATE SODIUM 100 MG CAPSULE PEG SCH ×2 (09:56→21:45)
[2017-11-30] MEDS: FLUCONAZOLE 40 MG/ML 35 ML/BOTTLE PER TUBE SCH (09:56)
[2017-11-30] MEDS: WHITE PETROLATUM 30 GM TUBE TOP SCH ×2 (09:58→21:46)
[2017-11-30] MEDS: CHLORHEXIDINE 0.12% ORAL RINSE 60 ML BOTTLE SWISH/SPIT SCH ×2 (09:58→21:47)
[2017-11-30] MEDS: PANTOPRAZOLE 40 MG TABLET PO SCH (17:20)
[2017-11-30] MEDS: LOVASTATIN 20 MG TABLET PEG SCH (21:45)
[2017-11-30] MEDS: ZINC OXIDE PASTE 113 GM TUBE TOP PRN (21:46)
[2017-11-30] MEDS: BRIMONIDINE/TIMOLOL OPH SOLN 5 ML BOTTLE LEFT EYE SCH (21:47)
[2017-11-30] MEDS: BIMATOPROST 0.01% OPH SOLN 2.5 ML BOTTLE LEFT EYE SCH (21:47)
[2017-12-01] MEDS: INSULIN REGULAR 100 UNIT/ML SUBCUT SCH ×4 (00:58→18:11)
[2017-12-01 06:23] LABS: Calcium 8.9 MG/DL (8.5-10.1); Osmolality,Calculated 326.2 MOS/KG (273-304); Potassium 3.7 MMOL/L (3.5-5.1)
[2017-12-01] MEDS ORDERED: PROMETHAZINE 25 MG/1 ML VIAL IM ONE (07:00)
[2017-12-01] MEDS ORDERED: MEPERIDINE 50 MG/1 ML VIAL IM ONE (07:00)
[2017-12-01] MEDS ORDERED: LIDOCAINE 2% 20 ML VIAL RESP TX ONE (07:30)
[2017-12-01] MEDS ORDERED: LIDOCAINE 2% VISCOUS 100 ML BOTTLE SWISH/SPIT ONE (07:30)
[2017-12-01] MEDS ORDERED: LIDOCAINE 1% 20 ML VIAL MISC INJ ONE (07:30)
[2017-12-01] MEDS: ALBUTEROL/IPRATROPIUM 3 ML NEB RESP TX SCH ×3 (07:36→18:45)
[2017-12-01] MEDS: DOCUSATE SODIUM 100 MG CAPSULE PEG SCH ×2 (10:54→21:00)
[2017-12-01] MEDS: CARVEDILOL 25 MG TABLET PEG SCH ×2 (10:54→17:10)
[2017-12-01] MEDS: ENOXAPARIN 40 MG/0.4 ML SYRINGE SUBCUT SCH (10:54)
[2017-12-01] MEDS: CEFUROXIME 250 MG TABLET PEG SCH ×2 (10:54→20:59)
[2017-12-01] MEDS: WHITE PETROLATUM 30 GM TUBE TOP SCH ×2 (10:55→20:59)
[2017-12-01] MEDS: CHLORHEXIDINE 0.12% ORAL RINSE 60 ML BOTTLE SWISH/SPIT SCH ×2 (10:55→21:01)
[2017-12-01] MEDS: FLUCONAZOLE 40 MG/ML 35 ML/BOTTLE PER TUBE SCH (10:55)
[2017-12-01] MEDS: amLODIPine 10 MG TABLET PEG SCH (10:55)
[2017-12-01] MEDS: INSULIN GLARGINE 100 UNIT/ML SUBCUT SCH (10:55)
[2017-12-01] MEDS: FERROUS SULFATE 300 MG/5 ML UDCUP PEG SCH ×3 (10:55→20:58)
[2017-12-01] MEDS: LISINOPRIL 20 MG TABLET PEG SCH (10:55)
[2017-12-01] MEDS: MOISTURIZING CREAM (EUCERIN) 113 GM JAR TOP SCH ×2 (10:55→21:00)
[2017-12-01] MEDS ORDERED: INSULIN GLARGINE 100 UNIT/ML SUBCUT SCH (13:46)
[2017-12-01] MEDS: PANTOPRAZOLE 40 MG TABLET PO SCH (17:10)
[2017-12-01] MEDS: INSULIN LISPRO 100 UNIT/ML SUBCUT SCH ×2 (18:10→20:59)
[2017-12-01] MEDS: LOVASTATIN 20 MG TABLET PEG SCH (20:59)
[2017-12-01] MEDS: BIMATOPROST 0.01% OPH SOLN 2.5 ML BOTTLE LEFT EYE SCH (20:59)
[2017-12-01] MEDS: BRIMONIDINE/TIMOLOL OPH SOLN 5 ML BOTTLE LEFT EYE SCH (20:59)
[2017-12-02] MEDS: INSULIN REGULAR 100 UNIT/ML SUBCUT SCH ×3 (00:04→11:54)
[2017-12-02] MEDS: ALBUTEROL/IPRATROPIUM 3 ML NEB RESP TX SCH ×3 (01:30→13:59)
[2017-12-02 05:45] LABS: Basophils % 0.1 % (0.0-0.8); Eosinophils # 0.1 10*3/uL (0.0-0.87); Eosinophils % 0.5 % (0.00-10.9); Hemoglobin 8.2 GM/DL (14.0-18.0); Immature Granulocytes % 1.1 %; Immature Granulocytes Absolute 0.11 #; Lymphocytes # 0.6 10*3/uL (1.4-4.0); Lymphocytes % 5.8 % (21.2-54.2); Mean Corpuscular HGB Conc 30.4 GM/DL (32-36); Mean Corpuscular Hemoglobin 24 PG (27-34); Mean Platelet Volume 11.9 FL (9.6-12.0); Monocytes # 0.5 10*3/uL (0.11-0.8); Monocytes % 5.2 % (1.7-12.7); NRBC # 0.03 10*3/uL; Neutrophils # 8.9 10*3/uL (1.4-7.4); Neutrophils % 87.3 % (38.7-73.9); Platelet Count 287 T/CUMM (130-400); Red Blood Count 3.46 MC/CUMM (3.8-5.5); Red Cell Distribution Width 17.2 % (9.3-17.3); White Blood Count 10.2 T/CUMM (4-12)
[2017-12-02 06:07] LABS: Giant Platelets Few; Hypochromasia 1+; Ovalocytes Slight; Platelet Estimate Adequate
[2017-12-02 06:08] LABS: Microcytosis Slight
[2017-12-02 06:18] LABS: Calcium 8.9 MG/DL (8.5-10.1); Osmolality,Calculated 324.3 MOS/KG (273-304)
[2017-12-02] MEDS: CARVEDILOL 25 MG TABLET PEG SCH (09:59)
[2017-12-02] MEDS: LISINOPRIL 20 MG TABLET PEG SCH (09:59)
[2017-12-02] MEDS: FERROUS SULFATE 300 MG/5 ML UDCUP PEG SCH (10:00)
[2017-12-02] MEDS: ENOXAPARIN 40 MG/0.4 ML SYRINGE SUBCUT SCH (10:00)
[2017-12-02] MEDS: CEFUROXIME 250 MG TABLET PEG SCH (10:01)
[2017-12-02] MEDS: DOCUSATE SODIUM 100 MG CAPSULE PEG SCH (10:03)
[2017-12-02] MEDS: MOISTURIZING CREAM (EUCERIN) 113 GM JAR TOP SCH (10:03)
[2017-12-02] MEDS: ZINC OXIDE PASTE 113 GM TUBE TOP PRN (10:03)
[2017-12-02] MEDS: WHITE PETROLATUM 30 GM TUBE TOP SCH (10:04)
[2017-12-02] MEDS: amLODIPine 10 MG TABLET PEG SCH (10:09)
[2017-12-02] MEDS: CHLORHEXIDINE 0.12% ORAL RINSE 60 ML BOTTLE SWISH/SPIT SCH (10:10)
[2017-12-02] MEDS: INSULIN LISPRO 100 UNIT/ML SUBCUT SCH ×2 (10:19→11:55)
[2017-12-02] MEDS: FLUCONAZOLE 40 MG/ML 35 ML/BOTTLE PER TUBE SCH (10:20)
[2017-12-02] MEDS ORDERED: FUROSEMIDE 20 MG/2 ML VIAL IV SCH (11:00)
[2017-12-02 11:31] VITALS: BP 123/68
[2017-12-02] MEDS ORDERED: fentaNYL 12 MCG/HR PATCH TRANSDERM SCH (12:00)
== END 2017-12-02 15:40 | DRG 177 ==
LOC: EDUNIT# → N.ED 07:58 → N.EDINP 10:21 → SUATTDRO 10:21 → N.EDINP 15:02 → N.5E 15:31
PROVIDERS: ADMIT Family Medicine; ATTEND Internal Medicine